=== PATIENT | female | born 1965 | race African-American/Black ===

== ENCOUNTER 2017-02-25 23:34 | Inpatient (IN) | payer MEDICARE, MEDICAID ==
[~2017-02-25] VITALS: Ht 170.2 cm; Wt 111.6 kg
[~2017-02-25 23:34] MED LIST: BUPR100SR PO; LURA80 PO; TOPI25 PO
[2017-02-26] MEDS ORDERED: ZOLPIDEM TARTRATE 10 MG TABLET PO PRN (01:00)
[2017-02-26 01:06] LABS: BASOPHILS % (AUTO) 0.7 % (0.0-2.0); EOSINOPHILS % (AUTO) 3.8 % (1.0-6.0); HEMATOCRIT 37.2 % (36-46); HEMOGLOBIN 12.6 g/dL (12.0-16.0); LYMPHOCYTES # (AUTO) 2.1 K/uL (1.0-4.8); LYMPHOCYTES % (AUTO) 32.9 % (22.0-44.0); MEAN CORPUSCULAR HEMOGLOBIN 28.4 pg (26.0-34.0); MEAN CORPUSCULAR VOLUME 84 fL (80-100); MONOCYTES # (AUTO) 0.3 K/uL (0.1-1.0); MONOCYTES % (AUTO) 5.4 % (2.0-9.0); NEUTROPHILS # (AUTO) 3.6 K/uL (1.8-7.7); NEUTROPHILS % (AUTO) 57.2 % (40.0-70.0); PLATELET COUNT (AUTO) 252 K/uL (150-450); RED BLOOD CELL COUNT(AUTO) 4.45 MIL/uL (4.00-5.20); RED CELL DISTRIBUTION WIDTH 14.6 % (11.5-14.5); WHITE BLOOD COUNT (AUTO) 6.3 K/uL (4.5-11.0)
[2017-02-26 01:15] LABS: ANION GAP 7 mmol/L (8-16); CALCIUM, TOTAL 9.5 mg/dL (8.8-10.5); CARBON DIOXIDE 30 mmol/L (22-29); CHLORIDE 105 mmol/L (98-107); CREATININE 0.87 mg/dL (0.60-1.30); GLOMERULAR FILTR. RATE CALC > 60 mL/min (>60); POTASSIUM 3.9 mmol/L (3.5-5.1); SODIUM SERUM 142 mmol/L (136-145); UREA NITROGEN, BLOOD 16 mg/dL (7-18)
[2017-02-26 01:21] LABS: ALANINE AMINOTRANSFERASE 28 U/L (12-78); ALBUMIN 3.4 g/dL (3.4-5.0); ASPARTATE AMINOTRANSFERASE 16 U/L (15-37); BILIRUBIN,TOTAL 0.2 mg/dL (0.1-1.0); TOTAL PROTEIN, SERUM 7.1 g/dL (6.4-8.2)
[2017-02-26 03:04] LABS: CHOL/HDL RATIO 4.4 (3.9-5.7)
[2017-02-26] MEDS: LORazepam 2 MG TABLET PO PRN ×2 (10:24→15:25)
[2017-02-26] MEDS: HALOPERIDOL 5 MG TABLET PO PRN (10:24)
[2017-02-26 13:17] VITALS: BP 129/65
[2017-02-26 16:09] VITALS: BP 140/60
[2017-02-26] MEDS ORDERED: OLANZapine 5 MG RAPDIS TABLET PO SCH (21:00)
[2017-02-27 00:15] VITALS: BP 138/79
[2017-02-27] MEDS ORDERED: FLUoxetine HCL 20 MG CAPSULE PO SCH (09:00)
[2017-02-27] MEDS: NICOTINE 14 MG/24 HOUR PATCH TD SCH (09:00)
[2017-02-27 09:23] VITALS: BP 122/66
[2017-02-27 16:06] VITALS: BP 139/80
[2017-02-27] MEDS: OLANZapine 10 MG RAPDIS TABLET PO SCH (20:15)
[2017-02-28 03:43] VITALS: BP 123/83
[2017-02-28 08:15] VITALS: BP 119/66
[2017-02-28] MEDS: FLUoxetine HCL 20 MG CAPSULE PO SCH (09:00)
[2017-02-28] MEDS: NICOTINE 14 MG/24 HOUR PATCH TD SCH (09:00)
[2017-02-28 16:06] VITALS: BP 138/79
[2017-02-28] MEDS: OLANZapine 10 MG RAPDIS TABLET PO SCH (20:27)
[2017-02-28] MEDS: HALOPERIDOL 5 MG TABLET PO PRN (21:44)
[2017-03-01 02:18] VITALS: BP 118/79
[2017-03-01 08:21] VITALS: BP 119/59
[2017-03-01] MEDS: FLUoxetine HCL 20 MG CAPSULE PO SCH (08:36)
[2017-03-01] MEDS: NICOTINE 14 MG/24 HOUR PATCH TD SCH (08:36)
[2017-03-01 16:05] VITALS: BP 112/64
[2017-03-01] MEDS ORDERED: FLUO-191 PO (19:02)
[2017-03-01] MEDS ORDERED: OLAN10TA6 PO (19:02)
== END 2017-03-01 19:25 | disposition home or self-care (01) | DRG 885 ==
LOC: EMS 23:36 → B2X 02-26 08:08
PROVIDERS: ADMIT Psychiatry & Neurology Psychiatry; ATTEND Psychiatry & Neurology Psychiatry
DX: F25.0 Schizoaffective disorder, bipolar type (principal); F41.9 Anxiety disorder, unspecified; E78.5 Hyperlipidemia, unspecified; Z59.0 Homelessness; Z90.49 Acquired absence of other specified parts of digestive tract; Z87.891 Personal history of nicotine dependence; Z79.899 Other long term (current) drug therapy; Z88.0 Allergy status to penicillin; Z91.040 Latex allergy status
CPT/HCPCS: 99285; G0480

== ENCOUNTER 2018-05-11 18:20 | Inpatient (IN) | payer MEDICARE, MEDICAID ==
[~2018-05-11] VITALS: Ht 172.7 cm; Wt 122.5 kg
[~2018-05-11 18:20] MED LIST changes: -BUPR100SR PO; -LURA80 PO; +NYST30CR9 TP; +OLAN10TA6 PO; -TOPI25 PO
[2018-05-11 19:50] VITALS: BP 112/73
[2018-05-11] MEDS ORDERED: HALOPERIDOL 5 MG TABLET PO PRN (20:15)
[2018-05-11 20:45] VITALS: BP 118/68
[2018-05-11] MEDS ORDERED: DOCUSATE SODIUM 100 MG CAPSULE PO PRN (21:15)
[2018-05-11] MEDS ORDERED: NICOTINE 14 MG/24 HOUR PATCH TD PRN (21:15)
[2018-05-11] MEDS ORDERED: LOPERAMIDE HCL 2 MG CAPSULE PO PRN (21:15)
[2018-05-11] MEDS ORDERED: ACETAMINOPHEN 325 MG TABLET PO PRN (21:15)
[2018-05-11] MEDS ORDERED: MAGNESIUM HYDROXIDE SUSPENSION 30 ML UDCUP PO PRN (21:15)
[2018-05-11] MEDS ORDERED: CloNIDine HCL 0.1 MG TABLET PO PRN (21:15)
[2018-05-11] MEDS ORDERED: ALBUTEROL SULFATE HFA 90 MCG/PUFF 8 GM INHALER IH PRN (21:15)
[2018-05-11] MEDS ORDERED: GuaiFENesin/D-METHORPHAN [SUGAR-FREE] 200-20MG/10 ML SYRUP UDCUP PO PRN (21:15)
[2018-05-11] MEDS ORDERED: ONDANSETRON HCL 4 MG TABLET PO PRN (21:15)
[2018-05-11] MEDS ORDERED: PETROLATUM,WHITE 71 GM JELLY TP PRN (21:15)
[2018-05-11] MEDS ORDERED: IBUPROFEN 400 MG TABLET PO PRN (21:15)
[2018-05-12 06:30] VITALS: BP 107/64
[2018-05-12 08:02] VITALS: BP 133/97
[2018-05-12 08:39] LABS: BASOPHILS % (AUTO) 0.5 % (0.0-2.0); EOSINOPHILS % (AUTO) 2.1 % (1.0-6.0); HEMOGLOBIN 12.5 g/dL (12.0-16.0); LYMPHOCYTES # (AUTO) 1.8 K/uL (1.0-4.8); MEAN CORPUSCULAR HEMOGLOBIN 27.5 pg (26.0-34.0); MEAN CORPUSCULAR VOLUME 83 fL (80-100); MONOCYTES # (AUTO) 0.4 K/uL (0.1-1.0); MONOCYTES % (AUTO) 8.5 % (2.0-9.0); NEUTROPHILS # (AUTO) 2.4 K/uL (1.8-7.7); NEUTROPHILS % (AUTO) 50.9 % (40.0-70.0); PLATELET COUNT (AUTO) 259 K/uL (150-450); RED BLOOD CELL COUNT(AUTO) 4.57 MIL/uL (4.00-5.20); RED CELL DISTRIBUTION WIDTH 14.2 % (11.5-14.5)
[2018-05-12 09:19] LABS: ALANINE AMINOTRANSFERASE 38 U/L (12-78); ALKALINE PHOSPHATASE 105 U/L (46-116); ANION GAP 7 mmol/L (8-16); ASPARTATE AMINOTRANSFERASE 17 U/L (15-37); BILIRUBIN,TOTAL 0.3 mg/dL (0.1-1.0); CALCIUM, TOTAL 8.7 mg/dL (8.8-10.5); CARBON DIOXIDE 27 mmol/L (22-29); CHLORIDE 107 mmol/L (98-107); CHOL/HDL RATIO 4.4 (3.9-5.7); CHOLESTEROL 193 mg/dL (131-200); CREATININE 1.01 mg/dL (0.60-1.30); FREE T4 (FREE THYROXINE) 0.78 ng/dL (0.76-1.46); GLOMERULAR FILTR. RATE CALC > 60 mL/min (>60); GLUCOSE,RANDOM 82 mg/dL (70-110); HCG,QUANTITATIVE 2 mIU/mL (0-6); HDL CHOLESTEROL 44 mg/dL (40-60); LDL CHOL (CALC.) 136 mg/dL (0-130); POTASSIUM 4.1 mmol/L (3.5-5.1); SODIUM SERUM 141 mmol/L (136-145); THYROID STIMULATING HORMONE 1.28 uIU/mL (0.36-3.74); TOTAL PROTEIN, SERUM 6.9 g/dL (6.4-8.2); TRIGLYCERIDES 66 mg/dL (15-150); UREA NITROGEN, BLOOD 15 mg/dL (7-18)
[2018-05-12 16:00] VITALS: BP 115/71
[2018-05-12] MEDS: LORazepam 2 MG TABLET PO PRN (17:11)
[2018-05-12] MEDS: OLANZapine 10 MG RAPDIS TABLET PO SCH (20:27)
[2018-05-13 06:00] VITALS: BP 116/64
[2018-05-13 06:42] VITALS: BP 116/64
[2018-05-13 08:19] VITALS: BP 135/82
[2018-05-13] MEDS: FLUoxetine HCL 20 MG CAPSULE PO SCH (08:35)
[2018-05-13] MEDS: LORazepam 2 MG TABLET PO PRN (15:59)
[2018-05-13 16:15] VITALS: BP 115/70
[2018-05-13] MEDS: OLANZapine 10 MG RAPDIS TABLET PO SCH (20:01)
[2018-05-14 05:22] VITALS: BP 118/74
[2018-05-14 08:01] VITALS: BP 124/62
[2018-05-14] MEDS: FLUoxetine HCL 20 MG CAPSULE PO SCH (08:24)
[2018-05-14] MEDS: LORazepam 2 MG TABLET PO PRN (18:00)
[2018-05-14 18:02] VITALS: BP 118/68
[2018-05-14] MEDS: OLANZapine 10 MG RAPDIS TABLET PO SCH (20:33)
[2018-05-14] MEDS: ZOLPIDEM TARTRATE 10 MG TABLET PO PRN (21:26)
[2018-05-15 01:32] VITALS: BP 135/74
[2018-05-15 02:32] VITALS: BP 134/88
[2018-05-15] MEDS: LORazepam 2 MG TABLET PO PRN (02:39)
[2018-05-15 08:00] VITALS: BP 136/86
[2018-05-15] MEDS ORDERED: FLUoxetine HCL 20 MG CAPSULE PO SCH (09:00)
[2018-05-15 16:04] VITALS: BP 126/80
[2018-05-15] MEDS: MAG HYDROX/AL HYDROX/SIMETH ES 30 ML SUSPENSION UDCUP PO PRN (20:13)
[2018-05-15] MEDS: OLANZapine 5 MG RAPDIS TABLET PO SCH (20:30)
[2018-05-16 05:13] VITALS: BP 103/62
[2018-05-16 08:18] VITALS: BP 108/63
[2018-05-16] MEDS: FLUoxetine HCL 20 MG CAPSULE PO SCH (08:34)
[2018-05-16 16:10] VITALS: BP 107/66
[2018-05-16] MEDS: LORazepam 2 MG TABLET PO PRN (19:15)
[2018-05-16] MEDS: OLANZapine 5 MG RAPDIS TABLET PO SCH (20:01)
[2018-05-17] VITALS: BP 131/76
[2018-05-17] MEDS: ZOLPIDEM TARTRATE 10 MG TABLET PO PRN (01:33)
[2018-05-17 08:14] VITALS: BP 107/69
[2018-05-17] MEDS: FLUoxetine HCL 20 MG CAPSULE PO SCH (08:42)
[2018-05-17] MEDS: MAG HYDROX/AL HYDROX/SIMETH ES 30 ML SUSPENSION UDCUP PO PRN (09:45)
[2018-05-17 16:08] VITALS: BP 113/65
[2018-05-17] MEDS: OLANZapine 5 MG RAPDIS TABLET PO SCH (20:33)
[2018-05-18 06:16] VITALS: BP 130/82
[2018-05-18 08:54] VITALS: BP 110/68
[2018-05-18] MEDS: FLUoxetine HCL 20 MG CAPSULE PO SCH (09:20)
[2018-05-18] MEDS: MAG HYDROX/AL HYDROX/SIMETH ES 30 ML SUSPENSION UDCUP PO PRN (10:32)
[2018-05-18] MEDS: LORazepam 2 MG TABLET PO PRN (10:32)
[2018-05-18 16:04] VITALS: BP 120/70
[2018-05-18] MEDS: OLANZapine 5 MG RAPDIS TABLET PO SCH (20:32)
[2018-05-18] MEDS: ZOLPIDEM TARTRATE 10 MG TABLET PO PRN (21:35)
[2018-05-19 05:32] VITALS: BP 121/68
[2018-05-19] MEDS: FLUoxetine HCL 20 MG CAPSULE PO SCH (08:11)
[2018-05-19] MEDS: LORazepam 2 MG TABLET PO PRN ×2 (08:11→18:13)
[2018-05-19 08:21] VITALS: BP 131/84
[2018-05-19 16:29] VITALS: BP 120/66
[2018-05-19] MEDS: OLANZapine 5 MG RAPDIS TABLET PO SCH (20:11)
[2018-05-19] MEDS: ZOLPIDEM TARTRATE 10 MG TABLET PO PRN (20:40)
[2018-05-19] MEDS: MAG HYDROX/AL HYDROX/SIMETH ES 30 ML SUSPENSION UDCUP PO PRN (21:49)
[2018-05-20 04:48] VITALS: BP 126/70
[2018-05-20 08:49] VITALS: BP 108/68
[2018-05-20] MEDS: FLUoxetine HCL 20 MG CAPSULE PO SCH (08:55)
[2018-05-20] MEDS: MAG HYDROX/AL HYDROX/SIMETH ES 30 ML SUSPENSION UDCUP PO PRN (15:06)
[2018-05-20 16:04] VITALS: BP 120/80
[2018-05-20] MEDS: OLANZapine 5 MG RAPDIS TABLET PO SCH (20:14)
[2018-05-20] MEDS: ZOLPIDEM TARTRATE 10 MG TABLET PO PRN (21:24)
[2018-05-21 03:05] VITALS: BP 121/68
[2018-05-21 08:04] VITALS: BP 139/71
[2018-05-21] MEDS: FLUoxetine HCL 20 MG CAPSULE PO SCH (08:41)
[2018-05-21 16:11] VITALS: BP 140/87
[2018-05-21] MEDS: LORazepam 2 MG TABLET PO PRN (18:24)
[2018-05-21] MEDS: MAG HYDROX/AL HYDROX/SIMETH ES 30 ML SUSPENSION UDCUP PO PRN (19:25)
[2018-05-21] MEDS: OLANZapine 5 MG RAPDIS TABLET PO SCH (20:29)
[2018-05-21] MEDS ORDERED: OLAN5TAB40 PO (21:35)
[2018-05-21] MEDS ORDERED: FLUO-191 PO (21:35)
[2018-05-22 03:48] VITALS: BP 130/81
== END 2018-05-22 07:15 | disposition home or self-care (01) | DRG 885 ==
LOC: B2S 20:17 → B2X 05-13 20:15
PROVIDERS: ADMIT Psychiatry & Neurology Psychiatry; ATTEND Psychiatry & Neurology Psychiatry
DX: F25.0 Schizoaffective disorder, bipolar type (principal); R45.851 Suicidal ideations; E78.5 Hyperlipidemia, unspecified; F41.9 Anxiety disorder, unspecified; F17.200 Nicotine dependence, unspecified, uncomplicated; F15.90 Other stimulant use, unspecified, uncomplicated; F12.90 Cannabis use, unspecified, uncomplicated; Z59.0 Homelessness; Z88.0 Allergy status to penicillin; Z91.040 Latex allergy status; Z71.51 Drug abuse counseling and surveillance of drug abuser; Z71.41 Alcohol abuse counseling and surveillance of alcoholic; Z72.89 Other problems related to lifestyle; Z23 Encounter for immunization
CPT/HCPCS: 83036; 84439; 84443; 90686

== ENCOUNTER 2019-07-03 22:36 | Inpatient (IN) | payer MEDICARE, MEDICAID ==
[~2019-07-03] VITALS: Ht 172.7 cm; Wt 117.3 kg
[~2019-07-03 22:36] MED LIST changes: +BUPR-93 PO; +LURA40 PO; -NYST30CR9 TP; -OLAN10TA6 PO
[2019-07-03] MEDS ORDERED: ZOLPIDEM TARTRATE 10 MG TABLET PO PRN (23:45)
[2019-07-04 01:49] VITALS: BP 123/88
[2019-07-04] MEDS: HALOPERIDOL 5 MG TABLET PO PRN ×2 (01:59→12:10)
[2019-07-04] MEDS ORDERED: INFLUENZA VIRUS VACCINE QVS 2019-20 (3YR+)/PF 60 MCG/0.5 ML SYRINGE IM ONE (02:00)
[2019-07-04 04:06] LABS: APPEARANCE,URINE CLEAR (CLEAR); GLUCOSE, URINE (UA) NEGATIVE (NEGATIVE); KETONES,URINE NEGATIVE (NEGATIVE); LEUKOCYTE ESTERASE ,URINE NEGATIVE (NEGATIVE); NITRATE,URINE NEGATIVE (NEGATIVE); OCCULT BLOOD,URINE NEGATIVE (NEGATIVE); PROTEIN,URINE NEGATIVE (NEGATIVE)
[2019-07-04 04:12] LABS: BILIRUBIN,URINE PRELIM. POSITIVE (NEGATIVE)
[2019-07-04 04:13] LABS: AMPHET/METH SCREEN,URINE NEGATIVE (NEGATIVE); BACTERIA,URINE Rare /HPF (None Seen); BARBITURATE SCREEN, URINE NEGATIVE (NEGATIVE); BENZODIAZEPINES SCREEN,URINE NEGATIVE (NEGATIVE); CANNABINOID SCREEN,URINE NEGATIVE (NEGATIVE); COCAINE SCREEN,URINE NEGATIVE (NEGATIVE); METHADONE SCREEN, URINE NEGATIVE (NEGATIVE); OPIATE SCREEN,URINE NEGATIVE (NEGATIVE); RBC,URINE 0-2 /HPF (0-2)
[2019-07-04 04:14] LABS: SQUAMOUS EPITHELIAL CELL,UR Moderate /LPF (None Seen)
[2019-07-04 04:15] LABS: PHENCYCLIDINE SCREEN,URINE NEGATIVE (NEGATIVE)
[2019-07-04] MEDS ORDERED: DOCUSATE SODIUM 100 MG CAPSULE PO PRN (10:45)
[2019-07-04] MEDS ORDERED: ACETAMINOPHEN 325 MG TABLET PO PRN (10:45)
[2019-07-04] MEDS ORDERED: GuaiFENesin/D-METHORPHAN [SUGAR-FREE] 200-20MG/10 ML SYRUP UDCUP PO PRN (10:45)
[2019-07-04] MEDS ORDERED: ALBUTEROL SULFATE HFA 90 MCG/PUFF 8 GM INHALER IH PRN (10:45)
[2019-07-04] MEDS ORDERED: NICOTINE 14 MG/24 HOUR PATCH TD PRN (10:45)
[2019-07-04] MEDS ORDERED: ONDANSETRON HCL 4 MG TABLET PO PRN (10:45)
[2019-07-04] MEDS ORDERED: MAG HYDROX/AL HYDROX/SIMETH ES 30 ML SUSPENSION UDCUP PO PRN (10:45)
[2019-07-04] MEDS ORDERED: CloNIDine HCL 0.1 MG TABLET PO PRN (10:45)
[2019-07-04] MEDS ORDERED: LOPERAMIDE HCL 2 MG CAPSULE PO PRN (10:45)
[2019-07-04] MEDS ORDERED: MAGNESIUM HYDROXIDE SUSPENSION 30 ML UDCUP PO PRN (10:45)
[2019-07-04] MEDS ORDERED: PETROLATUM,WHITE 28 GM JELLY TP PRN (10:45)
[2019-07-04] MEDS ORDERED: IBUPROFEN 400 MG TABLET PO PRN (10:45)
[2019-07-04 12:02] VITALS: BP 130/76
[2019-07-04] MEDS: LORazepam 2 MG TABLET PO PRN (12:10)
[2019-07-04 18:05] VITALS: BP 109/70
[2019-07-04] MEDS: LURASIDONE HCL 40 MG TABLET PO SCH (20:31)
[2019-07-05] MEDS: BuPROPion HCL XL 150 MG ER TABLET PO SCH (08:19)
[2019-07-05 09:38] VITALS: BP 114/71
[2019-07-05] MEDS: LORazepam 2 MG TABLET PO PRN (10:59)
[2019-07-05] MEDS: HALOPERIDOL 5 MG TABLET PO PRN (10:59)
[2019-07-05 16:00] VITALS: BP 115/78
[2019-07-05] MEDS: LURASIDONE HCL 40 MG TABLET PO SCH (20:26)
[2019-07-06 03:11] VITALS: BP 139/89
[2019-07-06 08:16] VITALS: BP 136/88
[2019-07-06] MEDS: BuPROPion HCL XL 150 MG ER TABLET PO SCH (08:20)
[2019-07-06] MEDS: LORazepam 2 MG TABLET PO PRN (12:12)
[2019-07-06] MEDS: HALOPERIDOL 5 MG TABLET PO PRN (12:12)
[2019-07-06 19:23] VITALS: BP 101/69
[2019-07-06] MEDS: LURASIDONE HCL 40 MG TABLET PO SCH (20:16)
[2019-07-07] MEDS: BuPROPion HCL XL 150 MG ER TABLET PO SCH (07:55)
[2019-07-07 08:30] VITALS: BP 131/84
[2019-07-07] MEDS: LORazepam 2 MG TABLET PO PRN (14:49)
[2019-07-07 19:00] VITALS: BP 102/65
[2019-07-07] MEDS: LURASIDONE HCL 40 MG TABLET PO SCH (20:30)
[2019-07-08 08:00] VITALS: BP 152/74
[2019-07-08] MEDS: BuPROPion HCL XL 150 MG ER TABLET PO SCH (08:02)
[2019-07-08] MEDS: LORazepam 2 MG TABLET PO PRN (11:10)
[2019-07-08] MEDS ORDERED: LURA60TA PO (11:19)
== END 2019-07-08 14:50 | disposition home or self-care (01) | DRG 885 ==
LOC: 3EX 07-04 00:45
PROVIDERS: ADMIT Psychiatry & Neurology Psychiatry; ATTEND Psychiatry & Neurology Psychiatry
DX: F25.0 Schizoaffective disorder, bipolar type (principal); R45.851 Suicidal ideations; E66.9 Obesity, unspecified; E78.5 Hyperlipidemia, unspecified; F10.10 Alcohol abuse, uncomplicated; F12.90 Cannabis use, unspecified, uncomplicated; F17.200 Nicotine dependence, unspecified, uncomplicated; F41.9 Anxiety disorder, unspecified; Z59.0 Homelessness; Z88.0 Allergy status to penicillin
CPT/HCPCS: 80307; G0378

== ENCOUNTER 2019-07-11 17:04 | Inpatient (IN) | payer MEDICARE, MEDICAID ==
[~2019-07-11] VITALS: Ht 172.7 cm; Wt 118.8 kg
[~2019-07-11 17:04] MED LIST changes: -LURA40 PO; +LURA60TA PO
[2019-07-11] MEDS ORDERED: ZOLPIDEM TARTRATE 10 MG TABLET PO PRN (23:00)
[2019-07-12 00:15] VITALS: BP 120/81
[2019-07-12] MEDS ORDERED: ALBUTEROL SULFATE HFA 90 MCG/PUFF 8 GM INHALER IH PRN (13:45)
[2019-07-12] MEDS ORDERED: NICOTINE 14 MG/24 HOUR PATCH TD PRN (13:45)
[2019-07-12] MEDS ORDERED: GuaiFENesin/D-METHORPHAN [SUGAR-FREE] 200-20MG/10 ML SYRUP UDCUP PO PRN (13:45)
[2019-07-12] MEDS ORDERED: IBUPROFEN 400 MG TABLET PO PRN (13:45)
[2019-07-12] MEDS ORDERED: MAG HYDROX/AL HYDROX/SIMETH ES 30 ML SUSPENSION UDCUP PO PRN (13:45)
[2019-07-12] MEDS ORDERED: DOCUSATE SODIUM 100 MG CAPSULE PO PRN (13:45)
[2019-07-12] MEDS ORDERED: ONDANSETRON HCL 4 MG TABLET PO PRN (13:45)
[2019-07-12] MEDS ORDERED: LOPERAMIDE HCL 2 MG CAPSULE PO PRN (13:45)
[2019-07-12] MEDS ORDERED: ACETAMINOPHEN 325 MG TABLET PO PRN (13:45)
[2019-07-12] MEDS ORDERED: MAGNESIUM HYDROXIDE SUSPENSION 30 ML UDCUP PO PRN (13:45)
[2019-07-12] MEDS ORDERED: CloNIDine HCL 0.1 MG TABLET PO PRN (13:45)
[2019-07-12] MEDS ORDERED: PETROLATUM,WHITE 28 GM JELLY TP PRN (13:45)
[2019-07-12 17:51] VITALS: BP 101/64
[2019-07-12] MEDS: LURASIDONE HCL 40 MG TABLET PO SCH (20:42)
[2019-07-13 06:29] VITALS: BP 112/66
[2019-07-13 08:17] VITALS: BP 113/64
[2019-07-13] MEDS: BuPROPion HCL XL 150 MG ER TABLET PO SCH (09:03)
[2019-07-13 16:11] VITALS: BP 107/63
[2019-07-13] MEDS: LURASIDONE HCL 40 MG TABLET PO SCH (21:58)
[2019-07-14 08:00] VITALS: BP 112/71
[2019-07-14] MEDS: BuPROPion HCL XL 150 MG ER TABLET PO SCH (08:24)
[2019-07-14 11:13] VITALS: BP 109/74
[2019-07-14] MEDS: LORazepam 1 MG TABLET PO PRN (14:38)
[2019-07-14] MEDS: HALOPERIDOL 5 MG TABLET PO PRN (14:38)
[2019-07-14 16:00] VITALS: BP 110/67
[2019-07-14] MEDS: LURASIDONE HCL 40 MG TABLET PO SCH (20:15)
[2019-07-15 06:39] VITALS: BP 102/60
[2019-07-15 08:43] VITALS: BP 123/72
[2019-07-15] MEDS: BuPROPion HCL XL 150 MG ER TABLET PO SCH (09:00)
[2019-07-15] MEDS: LORazepam 1 MG TABLET PO PRN (14:46)
[2019-07-15 16:11] VITALS: BP 98/64
[2019-07-15] MEDS: HALOPERIDOL 5 MG TABLET PO PRN (16:14)
[2019-07-15] MEDS: LURASIDONE HCL 40 MG TABLET PO SCH (20:38)
[2019-07-16 02:35] VITALS: BP 113/65
[2019-07-16] MEDS: LORazepam 1 MG TABLET PO PRN (02:39)
[2019-07-16] MEDS: HALOPERIDOL 5 MG TABLET PO PRN (02:39)
[2019-07-16 07:37] LABS: BASOPHILS % (AUTO) 0.3 % (0.0-2.0); EOSINOPHILS % (AUTO) 1.1 % (1.0-6.0); HEMATOCRIT 40.4 % (36-46); HEMOGLOBIN 13.3 g/dL (12.0-16.0); LYMPHOCYTES # (AUTO) 1.4 K/uL (1.0-4.8); MEAN CORPUSCULAR HEMOGLOBIN 27.7 pg (26.0-34.0); MEAN CORPUSCULAR HGB CONC 32.9 G/dL (31.0-37.0); MEAN CORPUSCULAR VOLUME 84 fL (80-100); MONOCYTES # (AUTO) 0.4 K/uL (0.1-1.0); MONOCYTES % (AUTO) 9.4 % (2.0-9.0); NEUTROPHILS # (AUTO) 2.5 K/uL (1.8-7.7); NEUTROPHILS % (AUTO) 57.2 % (40.0-70.0); PLATELET COUNT (AUTO) 251 K/uL (150-450); RED CELL DISTRIBUTION WIDTH 14.9 % (11.5-14.5)
[2019-07-16 07:53] LABS: HEMOGLOBIN A1C 5.4 % (4.5-6.2)
[2019-07-16 08:02] LABS: ALANINE AMINOTRANSFERASE 25 U/L (12-78); ALBUMIN 3.4 g/dL (3.4-5.0); ALKALINE PHOSPHATASE 112 U/L (46-116); ANION GAP 5 mmol/L (8-16); ASPARTATE AMINOTRANSFERASE 18 U/L (15-37); BILIRUBIN,TOTAL 0.2 mg/dL (0.1-1.0); CALCIUM, TOTAL 8.9 mg/dL (8.8-10.5); CARBON DIOXIDE 30 mmol/L (22-29); CHLORIDE 104 mmol/L (98-107); CHOL/HDL RATIO 4.7 (3.9-5.7); CHOLESTEROL 216 mg/dL (131-200); CREATININE 0.96 mg/dL (0.60-1.30); FREE T4 (FREE THYROXINE) 0.78 ng/dL (0.76-1.46); GLOMERULAR FILTR. RATE CALC > 60 mL/min (>60); GLUCOSE,RANDOM 78 mg/dL (70-110); HCG,QUANTITATIVE 2 mIU/mL (0-6); HDL CHOLESTEROL 46 mg/dL (40-60); LDL CHOL (CALC.) 149 mg/dL (0-130); POTASSIUM 5.2 mmol/L (3.5-5.1); SODIUM SERUM 139 mmol/L (136-145); THYROID STIMULATING HORMONE 3.54 uIU/mL (0.36-3.74); TOTAL PROTEIN, SERUM 7.3 g/dL (6.4-8.2); TRIGLYCERIDES 105 mg/dL (15-150); UREA NITROGEN, BLOOD 16 mg/dL (7-18)
[2019-07-16] MEDS: BuPROPion HCL XL 150 MG ER TABLET PO SCH (08:02)
[2019-07-16 08:24] VITALS: BP 119/69
== END 2019-07-16 09:50 | disposition home or self-care (01) | DRG 885 ==
LOC: B2X 22:20 → UNDOADMIN 22:20 → B2X 07-12 04:31
PROVIDERS: ADMIT Psychiatry & Neurology Psychiatry; ATTEND Psychiatry & Neurology Psychiatry
DX: F25.0 Schizoaffective disorder, bipolar type (principal); R45.851 Suicidal ideations; E78.5 Hyperlipidemia, unspecified; F10.10 Alcohol abuse, uncomplicated; Z71.41 Alcohol abuse counseling and surveillance of alcoholic; F12.90 Cannabis use, unspecified, uncomplicated; F41.9 Anxiety disorder, unspecified; Z59.0 Homelessness; Z86.59 Personal history of other mental and behavioral disorders; Z88.0 Allergy status to penicillin; Z79.899 Other long term (current) drug therapy
CPT/HCPCS: 83036; 84436; 84439; 84443; 87081

== ENCOUNTER 2019-09-24 20:47 | Inpatient (IN) | payer MEDICARE, MEDICAID ==
[2019-09-24] MEDS ORDERED: ZOLPIDEM TARTRATE 10 MG TABLET PO PRN (21:45)
[2019-09-24 21:53] VITALS: BP 113/65
[2019-09-24 22:07] VITALS: BP 124/79
[2019-09-25 06:27] VITALS: BP 123/70
[2019-09-25] MEDS ORDERED: PETROLATUM,WHITE 28 GM JELLY TP PRN (09:30)
[2019-09-25] MEDS ORDERED: LOPERAMIDE HCL 2 MG CAPSULE PO PRN (09:30)
[2019-09-25] MEDS ORDERED: ALBUTEROL SULFATE HFA 90 MCG/PUFF 8 GM INHALER IH PRN (09:30)
[2019-09-25] MEDS ORDERED: GuaiFENesin/D-METHORPHAN [SUGAR-FREE] 200-20MG/10 ML SYRUP UDCUP PO PRN (09:30)
[2019-09-25] MEDS ORDERED: IBUPROFEN 400 MG TABLET PO PRN (09:30)
[2019-09-25] MEDS ORDERED: MAG HYDROX/AL HYDROX/SIMETH ES 30 ML SUSPENSION UDCUP PO PRN (09:30)
[2019-09-25] MEDS ORDERED: CloNIDine HCL 0.1 MG TABLET PO PRN (09:30)
[2019-09-25] MEDS ORDERED: DOCUSATE SODIUM 100 MG CAPSULE PO PRN (09:30)
[2019-09-25] MEDS ORDERED: ACETAMINOPHEN 325 MG TABLET PO PRN (09:30)
[2019-09-25] MEDS ORDERED: ONDANSETRON HCL 4 MG TABLET PO PRN (09:30)
[2019-09-25] MEDS ORDERED: NICOTINE 14 MG/24 HOUR PATCH TD PRN (09:30)
[2019-09-25] MEDS ORDERED: MAGNESIUM HYDROXIDE SUSPENSION 30 ML UDCUP PO PRN (09:30)
[2019-09-25 16:00] VITALS: BP 117/60
[2019-09-25] MEDS: LURASIDONE HCL 40 MG TABLET PO SCH (21:27)
[2019-09-26 07:10] VITALS: BP 116/64
[2019-09-26] MEDS: BuPROPion HCL XL 150 MG ER TABLET PO SCH (08:41)
[2019-09-26] MEDS: NYSTATIN 15 GM POWDER BOTTLE TP SCH ×3 (09:00→17:22)
[2019-09-26 16:00] VITALS: BP 101/69
[2019-09-26] MEDS: LURASIDONE HCL 40 MG TABLET PO SCH (17:21)
[2019-09-27] MEDS: BuPROPion HCL XL 150 MG ER TABLET PO SCH (08:20)
[2019-09-27] MEDS: NYSTATIN 15 GM POWDER BOTTLE TP SCH ×3 (08:27→17:15)
[2019-09-27 08:30] VITALS: BP 114/72
[2019-09-27 16:20] VITALS: BP 105/63
[2019-09-27] MEDS: LURASIDONE HCL 40 MG TABLET PO SCH (17:15)
[2019-09-28 06:24] VITALS: BP 100/60
[2019-09-28 08:34] VITALS: BP 106/61
[2019-09-28] MEDS: BuPROPion HCL XL 150 MG ER TABLET PO SCH (08:49)
[2019-09-28] MEDS: NYSTATIN 15 GM POWDER BOTTLE TP SCH ×3 (08:49→17:29)
[2019-09-28] MEDS: LORazepam 2 MG TABLET PO PRN (15:38)
[2019-09-28] MEDS: HALOPERIDOL 5 MG TABLET PO PRN (15:38)
[2019-09-28 16:31] VITALS: BP 130/59
[2019-09-28] MEDS: LURASIDONE HCL 40 MG TABLET PO SCH (17:28)
[2019-09-29 05:21] VITALS: BP 128/70
[2019-09-29 08:02] LABS: BASOPHILS % (AUTO) 1.4 % (0.0-2.0); EOSINOPHILS % (AUTO) 2.1 % (1.0-6.0); HEMATOCRIT 38.3 % (36-46); HEMOGLOBIN 12.6 g/dL (12.0-16.0); LYMPHOCYTES # (AUTO) 1.5 K/uL (1.0-4.8); LYMPHOCYTES % (AUTO) 34.4 % (22.0-44.0); MEAN CORPUSCULAR HEMOGLOBIN 27.8 pg (26.0-34.0); MEAN CORPUSCULAR HGB CONC 32.9 G/dL (31.0-37.0); MEAN CORPUSCULAR VOLUME 84 fL (80-100); MONOCYTES # (AUTO) 0.4 K/uL (0.1-1.0); MONOCYTES % (AUTO) 8.8 % (2.0-9.0); NEUTROPHILS # (AUTO) 2.3 K/uL (1.8-7.7); NEUTROPHILS % (AUTO) 53.3 % (40.0-70.0); PLATELET COUNT (AUTO) 255 K/uL (150-450); RED BLOOD CELL COUNT(AUTO) 4.54 MIL/uL (4.00-5.20); RED CELL DISTRIBUTION WIDTH 13.9 % (11.5-14.5)
[2019-09-29 08:26] LABS: HEMOGLOBIN A1C 5.6 % (4.5-6.2)
[2019-09-29 08:33] LABS: ALANINE AMINOTRANSFERASE 37 U/L (12-78); ALBUMIN 3.1 g/dL (3.4-5.0); ALKALINE PHOSPHATASE 116 U/L (46-116); ANION GAP 6 mmol/L (8-16); ASPARTATE AMINOTRANSFERASE 22 U/L (15-37); BILIRUBIN,TOTAL 0.3 mg/dL (0.1-1.0); CALCIUM, TOTAL 9.2 mg/dL (8.8-10.5); CARBON DIOXIDE 28 mmol/L (22-29); CHLORIDE 107 mmol/L (98-107); CHOL/HDL RATIO 5.1 (3.9-5.7); CHOLESTEROL 192 mg/dL (131-200); CREATININE 1.02 mg/dL (0.60-1.30); GLOMERULAR FILTR. RATE CALC > 60 mL/min (>60); GLUCOSE,RANDOM 80 mg/dL (70-110); HDL CHOLESTEROL 38 mg/dL (40-60); LDL CHOL (CALC.) 136 mg/dL (0-130); POTASSIUM 3.9 mmol/L (3.5-5.1); SODIUM SERUM 141 mmol/L (136-145); THYROID STIMULATING HORMONE 3.79 uIU/mL (0.36-3.74); TOTAL PROTEIN, SERUM 7.2 g/dL (6.4-8.2); TRIGLYCERIDES 88 mg/dL (15-150); UREA NITROGEN, BLOOD 12 mg/dL (7-18)
[2019-09-29 08:57] VITALS: BP 120/68
[2019-09-29] MEDS: BuPROPion HCL XL 150 MG ER TABLET PO SCH (09:38)
[2019-09-29] MEDS: NYSTATIN 15 GM POWDER BOTTLE TP SCH ×3 (09:39→17:12)
[2019-09-29] MEDS: LORazepam 2 MG TABLET PO PRN (13:01)
[2019-09-29] MEDS: HALOPERIDOL 5 MG TABLET PO PRN (13:01)
[2019-09-29 16:15] VITALS: BP 103/60
[2019-09-29] MEDS: LURASIDONE HCL 80 MG TABLET PO SCH (17:11)
[2019-09-30 07:10] VITALS: BP 117/64
[2019-09-30 08:00] VITALS: BP 140/82
[2019-09-30] MEDS: BuPROPion HCL XL 150 MG ER TABLET PO SCH (08:50)
[2019-09-30] MEDS: NYSTATIN 15 GM POWDER BOTTLE TP SCH ×3 (08:53→16:45)
[2019-09-30] MEDS: HALOPERIDOL 5 MG TABLET PO PRN (10:46)
[2019-09-30] MEDS: LORazepam 2 MG TABLET PO PRN (10:46)
[2019-09-30 16:11] VITALS: BP 110/69
[2019-09-30] MEDS: LURASIDONE HCL 80 MG TABLET PO SCH (16:44)
[2019-10-01 00:46] VITALS: BP 134/81
[2019-10-01 08:27] VITALS: BP 107/68
[2019-10-01] MEDS: BuPROPion HCL XL 150 MG ER TABLET PO SCH (08:45)
[2019-10-01] MEDS: NYSTATIN 15 GM POWDER BOTTLE TP SCH ×3 (08:47→17:47)
[2019-10-01] MEDS: LORazepam 2 MG TABLET PO PRN (11:44)
[2019-10-01] MEDS: HALOPERIDOL 5 MG TABLET PO PRN (11:44)
[2019-10-01 16:33] VITALS: BP 114/78
[2019-10-01] MEDS: LURASIDONE HCL 80 MG TABLET PO SCH (17:47)
[2019-10-02 00:36] VITALS: BP 137/89
[2019-10-02] MEDS: BuPROPion HCL XL 150 MG ER TABLET PO SCH (09:00)
[2019-10-02] MEDS: HALOPERIDOL 5 MG TABLET PO PRN ×2 (09:00→17:18)
[2019-10-02] MEDS: LORazepam 2 MG TABLET PO PRN ×2 (09:00→17:18)
[2019-10-02] MEDS: NYSTATIN 15 GM POWDER BOTTLE TP SCH ×3 (09:02→16:22)
[2019-10-02 09:12] VITALS: BP 155/74
[2019-10-02] MEDS: LURASIDONE HCL 80 MG TABLET PO SCH (16:22)
[2019-10-02 16:23] VITALS: BP 119/71
[2019-10-03 08:35] VITALS: BP 123/74
[2019-10-03] MEDS: NYSTATIN 15 GM POWDER BOTTLE TP SCH (08:38)
[2019-10-03] MEDS: BuPROPion HCL XL 150 MG ER TABLET PO SCH (08:38)
[2019-10-03] MEDS ORDERED: NYST15PO3 TP (08:47)
[2019-10-03] MEDS ORDERED: LURA80 PO (08:47)
== END 2019-10-03 09:50 | disposition home or self-care (01) | DRG 885 ==
LOC: B2S 22:29
DX: F25.1 Schizoaffective disorder, depressive type (principal); R45.851 Suicidal ideations; E78.5 Hyperlipidemia, unspecified; F12.90 Cannabis use, unspecified, uncomplicated; F41.9 Anxiety disorder, unspecified; F17.200 Nicotine dependence, unspecified, uncomplicated; B36.9 Superficial mycosis, unspecified; F10.10 Alcohol abuse, uncomplicated; K59.00 Constipation, unspecified; Z79.899 Other long term (current) drug therapy; Z81.8 Family history of other mental and behavioral disorders; Z86.59 Personal history of other mental and behavioral disorders
CPT/HCPCS: 83036; 84439; 84443

== ENCOUNTER 2019-12-08 19:19 | Inpatient (IN) | payer MEDICARE, MEDICAID ==
[~2019-12-08 19:19] MED LIST changes: -LURA60TA PO; +LURA80TA2 PO; +NYST15PO3 TP
[2019-12-08 20:11] VITALS: BP 105/71
[2019-12-08 20:49] VITALS: BP 114/64
[2019-12-08] MEDS: ZOLPIDEM TARTRATE 10 MG TABLET PO PRN (20:57)
[2019-12-09 08:28] VITALS: BP 127/71
[2019-12-09] MEDS: PARoxetine HCL 20 MG TABLET PO SCH (10:21)
[2019-12-09] MEDS: OLANZapine 5 MG TABLET PO SCH ×2 (10:21→16:24)
[2019-12-09] MEDS: LORazepam 2 MG TABLET PO PRN (10:22)
[2019-12-09 17:19] VITALS: BP 110/64
[2019-12-10] MEDS: OLANZapine 5 MG TABLET PO SCH (08:38)
[2019-12-10] MEDS: PARoxetine HCL 20 MG TABLET PO SCH (08:38)
[2019-12-10 08:55] VITALS: BP 121/73
[2019-12-10] MEDS: LORazepam 2 MG TABLET PO PRN ×2 (09:32→16:05)
[2019-12-10] MEDS ORDERED: MAG HYDROX/AL HYDROX/SIMETH 30 ML SUSP UDCUP PO PRN (09:45)
[2019-12-10] MEDS: RisperiDONE 2 MG TABLET PO SCH ×2 (10:39→17:09)
[2019-12-10 16:26] VITALS: BP 110/65
[2019-12-10] MEDS ORDERED: ACETAMINOPHEN 325 MG TABLET PO PRN (20:45)
[2019-12-10] MEDS ORDERED: BENZOCAINE 10% 7 GM GEL TP PRN (20:45)
[2019-12-10] MEDS: HALOPERIDOL 5 MG TABLET PO PRN (21:18)
[2019-12-10] MEDS: ZOLPIDEM TARTRATE 10 MG TABLET PO PRN (23:47)
[2019-12-11 01:36] VITALS: BP 116/89
[2019-12-11 08:11] VITALS: BP 128/92
[2019-12-11] MEDS: PARoxetine HCL 20 MG TABLET PO SCH (08:43)
[2019-12-11] MEDS: RisperiDONE 2 MG TABLET PO SCH ×2 (08:43→16:38)
[2019-12-11 16:10] VITALS: BP 131/88
[2019-12-11] MEDS: HALOPERIDOL 5 MG TABLET PO PRN (16:38)
[2019-12-11] MEDS: ZOLPIDEM TARTRATE 10 MG TABLET PO PRN (20:29)
[2019-12-12 08:23] LABS: BASOPHILS % (AUTO) 0.6 % (0.0-2.0); EOSINOPHILS % (AUTO) 2.6 % (1.0-6.0); HEMATOCRIT 37.6 % (36-46); HEMOGLOBIN 12.3 g/dL (12.0-16.0); LYMPHOCYTES % (AUTO) 43.1 % (22.0-44.0); MEAN CORPUSCULAR HEMOGLOBIN 27.1 pg (26.0-34.0); MEAN CORPUSCULAR HGB CONC 32.6 G/dL (31.0-37.0); MEAN CORPUSCULAR VOLUME 83 fL (80-100); MONOCYTES # (AUTO) 0.4 K/uL (0.1-1.0); MONOCYTES % (AUTO) 8.8 % (2.0-9.0); NEUTROPHILS # (AUTO) 2.1 K/uL (1.8-7.7); NEUTROPHILS % (AUTO) 44.9 % (40.0-70.0); PLATELET COUNT (AUTO) 226 K/uL (150-450); RED BLOOD CELL COUNT(AUTO) 4.52 MIL/uL (4.00-5.20)
[2019-12-12] MEDS: RisperiDONE 2 MG TABLET PO SCH ×2 (09:05→16:39)
[2019-12-12] MEDS: PARoxetine HCL 20 MG TABLET PO SCH (09:05)
[2019-12-12 09:27] LABS: HEMOGLOBIN A1C 5.4 % (3.8-5.6)
[2019-12-12 09:38] LABS: ALANINE AMINOTRANSFERASE 21 U/L (12-78); ALBUMIN 3.3 g/dL (3.4-5.0); ALKALINE PHOSPHATASE 106 U/L (46-116); ANION GAP 7 mmol/L (8-16); ASPARTATE AMINOTRANSFERASE 13 U/L (15-37); BILIRUBIN,TOTAL 0.2 mg/dL (0.1-1.0); CALCIUM, TOTAL 8.9 mg/dL (8.8-10.5); CARBON DIOXIDE 27 mmol/L (22-29); CHLORIDE 108 mmol/L (98-107); CHOL/HDL RATIO 4.7 (3.9-5.7); CHOLESTEROL 205 mg/dL (131-200); CREATININE 0.76 mg/dL (0.60-1.30); FREE T4 (FREE THYROXINE) 0.88 ng/dL (0.76-1.46); GLOMERULAR FILTR. RATE CALC > 60 mL/min (>60); GLUCOSE,RANDOM 76 mg/dL (70-110); HDL CHOLESTEROL 44 mg/dL (40-60); LDL CHOL (CALC.) 147 mg/dL (0-130); POTASSIUM 4.8 mmol/L (3.5-5.1); SODIUM SERUM 142 mmol/L (136-145); THYROID STIMULATING HORMONE 2.48 uIU/mL (0.36-3.74); TOTAL PROTEIN, SERUM 6.5 g/dL (6.4-8.2); TRIGLYCERIDES 70 mg/dL (15-150); UREA NITROGEN, BLOOD 13 mg/dL (7-18)
[2019-12-12 16:11] VITALS: BP 111/66
[2019-12-12] MEDS: LORazepam 2 MG TABLET PO PRN (16:43)
[2019-12-13 03:10] VITALS: BP 118/78
[2019-12-13 08:17] VITALS: BP 130/69
[2019-12-13] MEDS: RisperiDONE 2 MG TABLET PO SCH ×2 (08:25→16:31)
[2019-12-13] MEDS: LORazepam 2 MG TABLET PO PRN ×2 (08:28→16:32)
[2019-12-13] MEDS: PARoxetine HCL 20 MG TABLET PO SCH (08:28)
[2019-12-13 16:19] VITALS: BP 123/84
[2019-12-13] MEDS: ZOLPIDEM TARTRATE 10 MG TABLET PO PRN (22:42)
[2019-12-14 00:53] VITALS: BP 141/88
[2019-12-14 07:58] LABS: BASOPHILS % (AUTO) 0.6 % (0.0-2.0); EOSINOPHILS % (AUTO) 2.1 % (1.0-6.0); HEMATOCRIT 38.5 % (36-46); HEMOGLOBIN 12.5 g/dL (12.0-16.0); LYMPHOCYTES # (AUTO) 1.9 K/uL (1.0-4.8); LYMPHOCYTES % (AUTO) 37.3 % (22.0-44.0); MEAN CORPUSCULAR HEMOGLOBIN 27.1 pg (26.0-34.0); MEAN CORPUSCULAR HGB CONC 32.4 G/dL (31.0-37.0); MEAN CORPUSCULAR VOLUME 84 fL (80-100); MONOCYTES # (AUTO) 0.5 K/uL (0.1-1.0); MONOCYTES % (AUTO) 9.9 % (2.0-9.0); NEUTROPHILS # (AUTO) 2.5 K/uL (1.8-7.7); NEUTROPHILS % (AUTO) 50.1 % (40.0-70.0); PLATELET COUNT (AUTO) 227 K/uL (150-450); RED BLOOD CELL COUNT(AUTO) 4.59 MIL/uL (4.00-5.20)
[2019-12-14 08:03] LABS: HEMOGLOBIN A1C 5.5 % (3.8-5.6)
[2019-12-14] MEDS: RisperiDONE 2 MG TABLET PO SCH ×2 (08:09→16:41)
[2019-12-14 08:12] LABS: ALANINE AMINOTRANSFERASE 24 U/L (12-78); ALBUMIN 3.3 g/dL (3.4-5.0); ALKALINE PHOSPHATASE 105 U/L (46-116); ANION GAP 8 mmol/L (8-16); ASPARTATE AMINOTRANSFERASE 17 U/L (15-37); BILIRUBIN,TOTAL 0.3 mg/dL (0.1-1.0); CALCIUM, TOTAL 9.3 mg/dL (8.8-10.5); CARBON DIOXIDE 28 mmol/L (22-29); CHLORIDE 104 mmol/L (98-107); CREATININE 0.79 mg/dL (0.60-1.30); FREE T4 (FREE THYROXINE) 0.89 ng/dL (0.76-1.46); GLOMERULAR FILTR. RATE CALC > 60 mL/min (>60); GLUCOSE,RANDOM 71 mg/dL (70-110); POTASSIUM 4.2 mmol/L (3.5-5.1); SODIUM SERUM 140 mmol/L (136-145); THYROID STIMULATING HORMONE 1.99 uIU/mL (0.36-3.74); TOTAL PROTEIN, SERUM 7.1 g/dL (6.4-8.2); UREA NITROGEN, BLOOD 11 mg/dL (7-18)
[2019-12-14 08:13] VITALS: BP 109/66
[2019-12-14] MEDS: HALOPERIDOL 5 MG TABLET PO PRN (10:00)
[2019-12-14 16:11] VITALS: BP 112/69
[2019-12-14] MEDS ORDERED: ACETAMINOPHEN 325 MG TABLET PO PRN (16:30)
[2019-12-14] MEDS ORDERED: IBUPROFEN 400 MG TABLET PO PRN (16:30)
[2019-12-14] MEDS ORDERED: NICOTINE 14 MG/24 HOUR PATCH TD PRN (16:30)
[2019-12-14] MEDS ORDERED: PETROLATUM,WHITE 28 GM JELLY TP PRN (16:30)
[2019-12-14] MEDS ORDERED: DOCUSATE SODIUM 100 MG CAPSULE PO PRN (16:30)
[2019-12-14] MEDS ORDERED: ALBUTEROL SULFATE HFA 90 MCG/PUFF 8 GM INHALER IH PRN (16:30)
[2019-12-14] MEDS ORDERED: MAGNESIUM HYDROXIDE SUSPENSION 30 ML UDCUP PO PRN (16:30)
[2019-12-14] MEDS ORDERED: CloNIDine HCL 0.1 MG TABLET PO PRN (16:30)
[2019-12-14] MEDS ORDERED: ONDANSETRON HCL 4 MG TABLET PO PRN (16:30)
[2019-12-14] MEDS ORDERED: LOPERAMIDE HCL 2 MG CAPSULE PO PRN (16:30)
[2019-12-14] MEDS: GuaiFENesin/D-METHORPHAN [SUGAR-FREE] 200-20MG/10 ML SYRUP UDCUP PO PRN (16:41)
[2019-12-14] MEDS: MAG HYDROX/AL HYDROX/SIMETH ES 30 ML SUSPENSION UDCUP PO PRN (16:42)
[2019-12-14] MEDS: LORazepam 2 MG TABLET PO PRN (17:30)
[2019-12-15] MEDS: RisperiDONE 2 MG TABLET PO SCH ×2 (08:32→16:34)
[2019-12-15 08:50] VITALS: BP 113/79
[2019-12-15] MEDS: HALOPERIDOL 5 MG TABLET PO PRN (13:10)
[2019-12-15] MEDS: GuaiFENesin/D-METHORPHAN [SUGAR-FREE] 200-20MG/10 ML SYRUP UDCUP PO PRN (13:43)
[2019-12-15 16:50] VITALS: BP 111/60
[2019-12-15] MEDS: MAG HYDROX/AL HYDROX/SIMETH ES 30 ML SUSPENSION UDCUP PO PRN (19:05)
[2019-12-16] MEDS: ZOLPIDEM TARTRATE 10 MG TABLET PO PRN (00:59)
[2019-12-16] MEDS: GuaiFENesin/D-METHORPHAN [SUGAR-FREE] 200-20MG/10 ML SYRUP UDCUP PO PRN ×2 (01:28→16:29)
[2019-12-16 02:27] VITALS: BP 119/78
[2019-12-16] MEDS: RisperiDONE 2 MG TABLET PO SCH ×2 (08:10→16:29)
[2019-12-16 08:31] VITALS: BP 121/83
[2019-12-16] MEDS: LORazepam 2 MG TABLET PO PRN (11:15)
[2019-12-16 16:12] VITALS: BP 127/72
[2019-12-17 05:27] VITALS: BP 138/96
[2019-12-17] MEDS: GuaiFENesin/D-METHORPHAN [SUGAR-FREE] 200-20MG/10 ML SYRUP UDCUP PO PRN ×2 (06:25→16:05)
[2019-12-17] MEDS: LORazepam 2 MG TABLET PO PRN (06:33)
[2019-12-17 08:17] VITALS: BP 134/62
[2019-12-17] MEDS: RisperiDONE 2 MG TABLET PO SCH ×2 (08:38→16:04)
[2019-12-17] MEDS ORDERED: RISP2 PO (15:53)
[2019-12-17 16:11] VITALS: BP 138/81
== END 2019-12-17 16:45 | disposition home or self-care (01) | DRG 885 ==
LOC: B2S 19:42
PROVIDERS: ADMIT Psychiatry & Neurology Psychiatry; ATTEND Psychiatry & Neurology Psychiatry
DX: F25.1 Schizoaffective disorder, depressive type (principal); R45.851 Suicidal ideations; F10.10 Alcohol abuse, uncomplicated; E78.5 Hyperlipidemia, unspecified; Z59.0 Homelessness; Z86.59 Personal history of other mental and behavioral disorders; Z87.891 Personal history of nicotine dependence
CPT/HCPCS: 83036; 84439; 84443

== ENCOUNTER 2020-01-07 09:21 | Emergency (ER) | payer MEDICARE, MEDICAID ==
[~2020-01-07] VITALS: Ht 175.3 cm; Wt 113.6 kg
[~2020-01-07 09:21] MED LIST changes: -BUPR-93 PO; -LURA80TA2 PO; -NYST15PO3 TP; +RISP2TAB23 PO
[2020-01-07 13:39] LABS: AMPHET/METH SCREEN,URINE NEGATIVE (NEGATIVE); BARBITURATE SCREEN, URINE NEGATIVE (NEGATIVE); BENZODIAZEPINES SCREEN,URINE NEGATIVE (NEGATIVE); CANNABINOID SCREEN,URINE POSITIVE (NEGATIVE); COCAINE SCREEN,URINE NEGATIVE (NEGATIVE); METHADONE SCREEN, URINE NEGATIVE (NEGATIVE); OPIATE SCREEN,URINE NEGATIVE (NEGATIVE)
[2020-01-07 13:54] LABS: PHENCYCLIDINE SCREEN,URINE NEGATIVE (NEGATIVE)
[2020-01-07 15:10] VITALS: BP 122/76
== END 2020-01-07 16:02 | disposition other institution (70) ==
LOC: EMS 09:22
DX: F52.9 Unspecified sexual dysfunction not due to a substance or known physiological condition (principal); R45.851 Suicidal ideations; F12.90 Cannabis use, unspecified, uncomplicated; F31.9 Bipolar disorder, unspecified

== ENCOUNTER 2020-02-12 16:25 | Inpatient (IN) | payer MEDICARE, MEDICAID ==
[~2020-02-12] VITALS: Ht 172.7 cm; Wt 117.6 kg
[2020-02-12] MEDS ORDERED: HALOPERIDOL 5 MG TABLET PO PRN (17:00)
[2020-02-12] MEDS ORDERED: PNEUMOCOCCAL VACCINE POLYVALENT 0.5 ML VIAL [PPSV23] IM ONE (17:00)
[2020-02-12 17:21] VITALS: BP 121/68
[2020-02-12] MEDS ORDERED: MAGNESIUM HYDROXIDE SUSPENSION 30 ML UDCUP PO PRN (20:30)
[2020-02-12] MEDS ORDERED: PETROLATUM,WHITE 28 GM JELLY TP PRN (20:30)
[2020-02-12] MEDS ORDERED: ONDANSETRON HCL 4 MG TABLET PO PRN (20:30)
[2020-02-12] MEDS ORDERED: ALBUTEROL SULFATE HFA 90 MCG/PUFF 8 GM INHALER IH PRN (20:30)
[2020-02-12] MEDS ORDERED: GuaiFENesin/D-METHORPHAN [SUGAR-FREE] 200-20MG/10 ML SYRUP UDCUP PO PRN (20:30)
[2020-02-12] MEDS ORDERED: MAG HYDROX/AL HYDROX/SIMETH ES 30 ML SUSPENSION UDCUP PO PRN (20:30)
[2020-02-12] MEDS ORDERED: CloNIDine HCL 0.1 MG TABLET PO PRN (20:30)
[2020-02-12] MEDS ORDERED: LOPERAMIDE HCL 2 MG CAPSULE PO PRN (20:30)
[2020-02-12] MEDS ORDERED: IBUPROFEN 400 MG TABLET PO PRN (20:30)
[2020-02-12] MEDS ORDERED: NICOTINE 14 MG/24 HOUR PATCH TD PRN (20:30)
[2020-02-12] MEDS ORDERED: DOCUSATE SODIUM 100 MG CAPSULE PO PRN (20:30)
[2020-02-12 21:06] LABS: GLUCOMETER DEV NAME(LOC) BV2S.; GLUCOSE,POINT OF CARE 93 MG/DL (70-110)
[2020-02-13 00:19] VITALS: BP 118/70
[2020-02-13 08:45] LABS: BASOPHILS % (AUTO) 0.4 % (0.0-2.0); HEMATOCRIT 40.2 % (36-46); HEMOGLOBIN 12.8 g/dL (12.0-16.0); LYMPHOCYTES # (AUTO) 2.2 K/uL (1.0-4.8); LYMPHOCYTES % (AUTO) 35.8 % (22.0-44.0); MEAN CORPUSCULAR HEMOGLOBIN 26.7 pg (26.0-34.0); MEAN CORPUSCULAR HGB CONC 31.8 G/dL (31.0-37.0); MEAN CORPUSCULAR VOLUME 84 fL (80-100); MONOCYTES # (AUTO) 0.5 K/uL (0.1-1.0); MONOCYTES % (AUTO) 8.3 % (2.0-9.0); NEUTROPHILS # (AUTO) 3.2 K/uL (1.8-7.7); NEUTROPHILS % (AUTO) 53.5 % (40.0-70.0); PLATELET COUNT (AUTO) 253 K/uL (150-450); RED BLOOD CELL COUNT(AUTO) 4.79 MIL/uL (4.00-5.20); RED CELL DISTRIBUTION WIDTH 15.4 % (11.5-14.5)
[2020-02-13 09:14] LABS: ALANINE AMINOTRANSFERASE 32 U/L (12-78); ALBUMIN 3.2 g/dL (3.4-5.0); ALKALINE PHOSPHATASE 113 U/L (46-116); ANION GAP 6 mmol/L (8-16); ASPARTATE AMINOTRANSFERASE 22 U/L (15-37); BILIRUBIN,TOTAL 0.3 mg/dL (0.1-1.0); CARBON DIOXIDE 28 mmol/L (22-29); CHLORIDE 104 mmol/L (98-107); CHOLESTEROL 239 mg/dL (131-200); CREATININE 0.87 mg/dL (0.60-1.30); FREE T4 (FREE THYROXINE) 0.76 ng/dL (0.76-1.46); GLOMERULAR FILTR. RATE CALC > 60 mL/min (>60); GLUCOSE,RANDOM 78 mg/dL (70-110); HDL CHOLESTEROL 48 mg/dL (40-60); LDL CHOL (CALC.) 172 mg/dL (0-130); POTASSIUM 4.1 mmol/L (3.5-5.1); SODIUM SERUM 138 mmol/L (136-145); THYROID STIMULATING HORMONE 1.26 uIU/mL (0.36-3.74); TOTAL PROTEIN, SERUM 7.4 g/dL (6.4-8.2); TRIGLYCERIDES 95 mg/dL (15-150); UREA NITROGEN, BLOOD 20 mg/dL (7-18)
[2020-02-13 09:21] LABS: HEMOGLOBIN A1C 5.4 % (3.8-5.6)
[2020-02-13] MEDS: FLUoxetine HCL 20 MG CAPSULE PO SCH (13:15)
[2020-02-13] MEDS: RisperiDONE 2 MG TABLET PO SCH (18:24)
[2020-02-14] MEDS: RisperiDONE 2 MG TABLET PO SCH ×2 (08:49→16:07)
[2020-02-14] MEDS: FLUoxetine HCL 20 MG CAPSULE PO SCH (08:49)
[2020-02-14] MEDS: LORazepam 2 MG TABLET PO PRN ×2 (14:22→20:05)
[2020-02-14] MEDS: ZOLPIDEM TARTRATE 10 MG TABLET PO PRN (22:40)
[2020-02-15 00:21] VITALS: BP 118/73
[2020-02-15] MEDS: FLUoxetine HCL 20 MG CAPSULE PO SCH (08:32)
[2020-02-15] MEDS: RisperiDONE 2 MG TABLET PO SCH ×2 (08:32→17:02)
[2020-02-15 09:27] VITALS: BP 126/80
[2020-02-15] MEDS: ACETAMINOPHEN 325 MG TABLET PO PRN ×2 (11:51→17:02)
[2020-02-15] MEDS: LORazepam 2 MG TABLET PO PRN (17:15)
[2020-02-15] MEDS: ZOLPIDEM TARTRATE 10 MG TABLET PO PRN (21:21)
[2020-02-16 06:54] VITALS: BP 122/78
[2020-02-16] MEDS: ACETAMINOPHEN 325 MG TABLET PO PRN ×2 (06:59→18:23)
[2020-02-16] MEDS: LORazepam 2 MG TABLET PO PRN ×2 (06:59→18:23)
[2020-02-16] MEDS: FLUoxetine HCL 20 MG CAPSULE PO SCH (08:15)
[2020-02-16] MEDS: RisperiDONE 2 MG TABLET PO SCH ×2 (08:15→16:43)
[2020-02-16 10:10] VITALS: BP 118/72
[2020-02-16 16:24] VITALS: BP 103/64
[2020-02-16 18:23] VITALS: BP 110/72
[2020-02-17 00:29] VITALS: BP 106/78
[2020-02-17] MEDS: ZOLPIDEM TARTRATE 10 MG TABLET PO PRN (01:58)
[2020-02-17 08:16] VITALS: BP 140/89
[2020-02-17] MEDS: FLUoxetine HCL 20 MG CAPSULE PO SCH (08:35)
[2020-02-17] MEDS: RisperiDONE 2 MG TABLET PO SCH (08:35)
[2020-02-17] MEDS ORDERED: FLUO-191 PO (12:15)
== END 2020-02-17 12:40 | disposition home or self-care (01) | DRG 885 ==
LOC: B2S 17:16
PROVIDERS: ADMIT Psychiatry & Neurology Child & Adolescent Psychiatry; ATTEND Psychiatry & Neurology Child & Adolescent Psychiatry
DX: F25.1 Schizoaffective disorder, depressive type (principal); R45.851 Suicidal ideations; F41.9 Anxiety disorder, unspecified; E11.9 Type 2 diabetes mellitus without complications; E78.5 Hyperlipidemia, unspecified; F10.10 Alcohol abuse, uncomplicated; Z59.0 Homelessness
CPT/HCPCS: 83036; 84439; 84443

== ENCOUNTER 2020-06-04 15:30 | Inpatient (IN) | payer MEDICARE, MEDICAID ==
[~2020-06-04] VITALS: Ht 175.3 cm; Wt 125.2 kg
[~2020-06-04 15:30] MED LIST changes: +FLUO-191 PO
[2020-06-04] MEDS ORDERED: ZOLPIDEM TARTRATE 10 MG TABLET PO PRN (18:00)
[2020-06-04 18:54] VITALS: BP 141/82
[2020-06-04] MEDS ORDERED: INFLUENZA VIRUS VACCINE QVS 2020-21 (6MO+)/PF 60 MCG/0.5 ML SYRINGE IM ONE (19:00)
[2020-06-04] MEDS ORDERED: PNEUMOCOCCAL VACCINE POLYVALENT 0.5 ML VIAL [PPSV23] IM ONE (19:00)
[2020-06-05 05:27] VITALS: BP 124/82
[2020-06-05 07:28] LABS: BASOPHILS % (AUTO) 0.8 % (0.0-2.0); EOSINOPHILS % (AUTO) 1.8 % (1.0-6.0); HEMATOCRIT 40.2 % (36-46); HEMOGLOBIN 13.4 g/dL (12.0-16.0); LYMPHOCYTES # (AUTO) 1.5 K/uL (1.0-4.8); LYMPHOCYTES % (AUTO) 37.5 % (22.0-44.0); MEAN CORPUSCULAR HEMOGLOBIN 27.4 pg (26.0-34.0); MEAN CORPUSCULAR HGB CONC 33.2 G/dL (31.0-37.0); MEAN CORPUSCULAR VOLUME 83 fL (80-100); MONOCYTES # (AUTO) 0.3 K/uL (0.1-1.0); MONOCYTES % (AUTO) 7.2 % (2.0-9.0); NEUTROPHILS # (AUTO) 2.1 K/uL (1.8-7.7); NEUTROPHILS % (AUTO) 52.7 % (40.0-70.0); PLATELET COUNT (AUTO) 249 K/uL (150-450); RED BLOOD CELL COUNT(AUTO) 4.87 MIL/uL (4.00-5.20); RED CELL DISTRIBUTION WIDTH 14.4 % (11.5-14.5)
[2020-06-05 07:44] LABS: HEMOGLOBIN A1C 5.6 % (3.8-5.6)
[2020-06-05 07:51] LABS: ALANINE AMINOTRANSFERASE 37 U/L (12-78); ALBUMIN 3.2 g/dL (3.4-5.0); ALKALINE PHOSPHATASE 116 U/L (46-116); ANION GAP 8 mmol/L (8-16); ASPARTATE AMINOTRANSFERASE 19 U/L (15-37); BILIRUBIN,TOTAL 0.2 mg/dL (0.1-1.0); CALCIUM, TOTAL 9.3 mg/dL (8.8-10.5); CARBON DIOXIDE 26 mmol/L (22-29); CHLORIDE 105 mmol/L (98-107); CHOL/HDL RATIO 5.6 (3.9-5.7); CHOLESTEROL 236 mg/dL (131-200); CREATININE 0.85 mg/dL (0.60-1.30); FREE T4 (FREE THYROXINE) 0.75 ng/dL (0.76-1.46); GLOMERULAR FILTR. RATE CALC > 60 mL/min (>60); GLUCOSE,RANDOM 86 mg/dL (70-110); HDL CHOLESTEROL 42 mg/dL (40-60); LDL CHOL (CALC.) 173 mg/dL (0-130); POTASSIUM 4.5 mmol/L (3.5-5.1); SODIUM SERUM 139 mmol/L (136-145); THYROID STIMULATING HORMONE 3.42 uIU/mL (0.36-3.74); TOTAL PROTEIN, SERUM 6.5 g/dL (6.4-8.2); TRIGLYCERIDES 106 mg/dL (15-150); UREA NITROGEN, BLOOD 15 mg/dL (7-18)
[2020-06-05 08:19] VITALS: BP 105/61
[2020-06-05] MEDS: NICOTINE 14 MG/24 HOUR PATCH TD SCH (08:28)
[2020-06-05] MEDS ORDERED: ALBUTEROL SULFATE HFA 90 MCG/PUFF 8 GM INHALER IH PRN (09:00)
[2020-06-05] MEDS ORDERED: DOCUSATE SODIUM 100 MG CAPSULE PO PRN (09:00)
[2020-06-05] MEDS ORDERED: NICOTINE 14 MG/24 HOUR PATCH TD PRN (09:00)
[2020-06-05] MEDS ORDERED: IBUPROFEN 400 MG TABLET PO PRN (09:00)
[2020-06-05] MEDS ORDERED: ONDANSETRON HCL 4 MG TABLET PO PRN (09:00)
[2020-06-05] MEDS ORDERED: LOPERAMIDE HCL 2 MG CAPSULE PO PRN (09:00)
[2020-06-05] MEDS ORDERED: PETROLATUM,WHITE 28 GM JELLY TP PRN (09:00)
[2020-06-05] MEDS ORDERED: GuaiFENesin/D-METHORPHAN [SUGAR-FREE] 200-20MG/10 ML SYRUP UDCUP PO PRN (09:00)
[2020-06-05] MEDS ORDERED: MAGNESIUM HYDROXIDE SUSPENSION 30 ML UDCUP PO PRN (09:00)
[2020-06-05] MEDS ORDERED: CloNIDine HCL 0.1 MG TABLET PO PRN (09:00)
[2020-06-05] MEDS ORDERED: ACETAMINOPHEN 325 MG TABLET PO PRN (09:00)
[2020-06-05] MEDS ORDERED: MAG HYDROX/AL HYDROX/SIMETH ES 30 ML SUSPENSION UDCUP PO PRN (09:00)
[2020-06-05] MEDS: LORazepam 2 MG TABLET PO PRN ×2 (09:45→20:42)
[2020-06-05] MEDS: HALOPERIDOL 5 MG TABLET PO PRN (09:45)
[2020-06-05] MEDS: ARIPiprazole 15 MG TABLET PO SCH (14:14)
[2020-06-05 16:11] VITALS: BP 146/93
[2020-06-06 01:49] VITALS: BP 132/85
[2020-06-06 08:22] VITALS: BP 128/79
[2020-06-06] MEDS: ARIPiprazole 15 MG TABLET PO SCH (09:39)
[2020-06-06] MEDS: NICOTINE 14 MG/24 HOUR PATCH TD SCH (09:39)
[2020-06-06] MEDS ORDERED: ChlorproMAZINE HCL 25 MG TABLET PO PRN (13:30)
[2020-06-06 17:27] VITALS: BP 143/92
[2020-06-07 01:07] VITALS: BP 126/87
[2020-06-07 08:34] VITALS: BP 130/78
[2020-06-07] MEDS: NICOTINE 14 MG/24 HOUR PATCH TD SCH (10:29)
[2020-06-07] MEDS: ARIPiprazole 15 MG TABLET PO SCH (10:29)
[2020-06-07] MEDS: LORazepam 2 MG TABLET PO PRN (10:30)
[2020-06-07] MEDS: HALOPERIDOL 5 MG TABLET PO PRN (10:30)
[2020-06-07] MEDS ORDERED: ARIP15TA2 PO (13:42)
== END 2020-06-07 14:50 | disposition home or self-care (01) | DRG 885 ==
LOC: B3A 17:51
PROVIDERS: ADMIT Psychiatry & Neurology Child & Adolescent Psychiatry; ATTEND Psychiatry & Neurology Child & Adolescent Psychiatry
PROC: 3E0234Z Introduction of Serum, Toxoid and Vaccine into Muscle, Percutaneous Approach (ICD-10-PCS; principal; 2020-06-07)
PROC: 3E02340 Introduction of Influenza Vaccine into Muscle, Percutaneous Approach (ICD-10-PCS; 2020-06-07)
DX: F25.1 Schizoaffective disorder, depressive type (principal); R45.851 Suicidal ideations; Z68.41 Body mass index [BMI] 40.0-44.9, adult; F15.10 Other stimulant abuse, uncomplicated; E78.5 Hyperlipidemia, unspecified; E11.9 Type 2 diabetes mellitus without complications; D72.819 Decreased white blood cell count, unspecified; E66.9 Obesity, unspecified; F10.10 Alcohol abuse, uncomplicated; Z81.8 Family history of other mental and behavioral disorders; Z23 Encounter for immunization
CPT/HCPCS: 83036; 84439; 84443; 87081; 90686; 90732; Q0162

== ENCOUNTER 2020-06-26 17:50 | Inpatient (IN) | payer MEDICARE, MEDICAID ==
[~2020-06-26] VITALS: Ht 177.8 cm; Wt 120.4 kg
[~2020-06-26 17:50] MED LIST changes: +ARIP15TA2 PO; -FLUO-191 PO; -RISP2TAB23 PO
[2020-06-26 20:30] VITALS: BP 130/72
[2020-06-26] MEDS ORDERED: HALOPERIDOL 5 MG TABLET PO PRN (21:00)
[2020-06-27 01:26] VITALS: BP 126/80
[2020-06-27] MEDS ORDERED: -PHARMACY VACCINE NOTE- MISC ONE (02:00)
[2020-06-27] MEDS ORDERED: CloNIDine HCL 0.1 MG TABLET PO PRN (07:00)
[2020-06-27] MEDS ORDERED: IBUPROFEN 400 MG TABLET PO PRN (07:00)
[2020-06-27] MEDS ORDERED: NICOTINE 14 MG/24 HOUR PATCH TD PRN (07:00)
[2020-06-27] MEDS ORDERED: MAG HYDROX/AL HYDROX/SIMETH ES 30 ML SUSPENSION UDCUP PO PRN (07:00)
[2020-06-27] MEDS ORDERED: LOPERAMIDE HCL 2 MG CAPSULE PO PRN (07:00)
[2020-06-27] MEDS ORDERED: ACETAMINOPHEN 325 MG TABLET PO PRN (07:00)
[2020-06-27] MEDS ORDERED: MAGNESIUM HYDROXIDE SUSPENSION 30 ML UDCUP PO PRN (07:00)
[2020-06-27] MEDS ORDERED: ALBUTEROL SULFATE HFA 90 MCG/PUFF 8 GM INHALER IH PRN (07:00)
[2020-06-27] MEDS ORDERED: GuaiFENesin/D-METHORPHAN [SUGAR-FREE] 200-20MG/10 ML SYRUP UDCUP PO PRN (07:00)
[2020-06-27] MEDS ORDERED: DOCUSATE SODIUM 100 MG CAPSULE PO PRN (07:00)
[2020-06-27] MEDS ORDERED: PETROLATUM,WHITE 28 GM JELLY TP PRN (07:00)
[2020-06-27] MEDS ORDERED: ONDANSETRON HCL 4 MG TABLET PO PRN (07:00)
[2020-06-27 08:55] VITALS: BP 107/63
[2020-06-27] MEDS ORDERED: ARIPiprazole 15 MG TABLET PO SCH (09:00)
[2020-06-27] MEDS ORDERED: ChlorproMAZINE HCL 25 MG TABLET PO PRN (12:15)
[2020-06-27 18:01] VITALS: BP 105/60
[2020-06-28 05:39] VITALS: BP 110/65
[2020-06-28] MEDS: ARIPiprazole 15 MG TABLET PO SCH (08:48)
[2020-06-28] MEDS: ZOLPIDEM TARTRATE 10 MG TABLET PO PRN (20:32)
[2020-06-29] MEDS: LORazepam 2 MG TABLET PO PRN ×2 (00:41→18:15)
[2020-06-29 00:50] VITALS: BP 134/76
[2020-06-29 08:39] VITALS: BP 144/81
[2020-06-29] MEDS: ARIPiprazole 15 MG TABLET PO SCH (10:00)
[2020-06-30 00:27] VITALS: BP 132/77
[2020-06-30] MEDS: LORazepam 2 MG TABLET PO PRN ×2 (08:05→14:05)
[2020-06-30] MEDS: ARIPiprazole 15 MG TABLET PO SCH (08:05)
[2020-06-30 08:28] VITALS: BP 120/75
[2020-06-30 08:33] LABS: BASOPHILS % (AUTO) 0.5 % (0.0-2.0); EOSINOPHILS % (AUTO) 1.2 % (1.0-6.0); HEMATOCRIT 42.8 % (36-46); LYMPHOCYTES # (AUTO) 2.1 K/uL (1.0-4.8); LYMPHOCYTES % (AUTO) 43.3 % (22.0-44.0); MEAN CORPUSCULAR HEMOGLOBIN 27.3 pg (26.0-34.0); MEAN CORPUSCULAR HGB CONC 32.7 G/dL (31.0-37.0); MEAN CORPUSCULAR VOLUME 83 fL (80-100); MONOCYTES # (AUTO) 0.3 K/uL (0.1-1.0); MONOCYTES % (AUTO) 6.8 % (2.0-9.0); NEUTROPHILS # (AUTO) 2.3 K/uL (1.8-7.7); NEUTROPHILS % (AUTO) 48.2 % (40.0-70.0); PLATELET COUNT (AUTO) 259 K/uL (150-450); RED BLOOD CELL COUNT(AUTO) 5.13 MIL/uL (4.00-5.20); RED CELL DISTRIBUTION WIDTH 15.2 % (11.5-14.5)
[2020-06-30 08:49] LABS: HEMOGLOBIN A1C 5.5 % (3.8-5.6)
[2020-06-30 09:32] LABS: ALANINE AMINOTRANSFERASE 26 U/L (12-78); ALBUMIN 3.6 g/dL (3.4-5.0); ALKALINE PHOSPHATASE 118 U/L (46-116); ANION GAP 8 mmol/L (8-16); ASPARTATE AMINOTRANSFERASE 14 U/L (15-37); BILIRUBIN,TOTAL 0.4 mg/dL (0.1-1.0); CALCIUM, TOTAL 9.5 mg/dL (8.8-10.5); CARBON DIOXIDE 29 mmol/L (22-29); CHLORIDE 102 mmol/L (98-107); CHOL/HDL RATIO 5.3 (3.9-5.7); CHOLESTEROL 245 mg/dL (131-200); CREATININE 0.85 mg/dL (0.60-1.30); FREE T4 (FREE THYROXINE) 0.89 ng/dL (0.76-1.46); GLOMERULAR FILTR. RATE CALC > 60 mL/min (>60); HDL CHOLESTEROL 46 mg/dL (40-60); LDL CHOL (CALC.) 176 mg/dL (0-130); POTASSIUM 4.6 mmol/L (3.5-5.1); SODIUM SERUM 139 mmol/L (136-145); TOTAL PROTEIN, SERUM 7.6 g/dL (6.4-8.2); TRIGLYCERIDES 114 mg/dL (15-150); UREA NITROGEN, BLOOD 15 mg/dL (7-18)
[2020-06-30 09:39] LABS: GLUCOSE,RANDOM 82 mg/dL (70-110)
[2020-06-30 16:57] VITALS: BP 108/63
[2020-07-01 00:43] VITALS: BP 116/68
[2020-07-01 02:15] VITALS: BP 132/83
[2020-07-01] MEDS: LORazepam 2 MG TABLET PO PRN ×2 (02:16→15:57)
[2020-07-01 08:43] VITALS: BP 111/69
[2020-07-01] MEDS: ARIPiprazole 15 MG TABLET PO SCH (08:55)
[2020-07-01 16:09] VITALS: BP 120/67
[2020-07-02] MEDS: ZOLPIDEM TARTRATE 10 MG TABLET PO PRN ×2 (02:17→21:37)
[2020-07-02 08:18] VITALS: BP 113/78
[2020-07-02] MEDS: ARIPiprazole 15 MG TABLET PO SCH (08:58)
[2020-07-02] MEDS: LORazepam 2 MG TABLET PO PRN (14:53)
[2020-07-02 16:38] VITALS: BP 118/65
[2020-07-03 06:18] VITALS: BP 128/82
[2020-07-03 08:09] VITALS: BP 128/79
[2020-07-03] MEDS: ARIPiprazole 15 MG TABLET PO SCH (08:26)
[2020-07-03 16:11] VITALS: BP 109/83
[2020-07-03] MEDS: LORazepam 2 MG TABLET PO PRN (17:18)
[2020-07-03] MEDS ORDERED: GABAPENTIN 300 MG CAPSULE PO SCH (21:00)
[2020-07-04 02:30] VITALS: BP 135/86
[2020-07-04] MEDS: LORazepam 2 MG TABLET PO PRN (03:44)
[2020-07-04 08:09] VITALS: BP 102/62
[2020-07-04] MEDS: ARIPiprazole 15 MG TABLET PO SCH (08:33)
[2020-07-04] MEDS ORDERED: GABA-1181 PO (12:48)
[2020-07-04] MEDS ORDERED: ARIP15TA2 PO (12:48)
== END 2020-07-04 15:30 | disposition home or self-care (01) | DRG 885 ==
LOC: B2S 20:44
PROVIDERS: ADMIT Psychiatry & Neurology Child & Adolescent Psychiatry; ATTEND Psychiatry & Neurology Child & Adolescent Psychiatry
DX: F25.1 Schizoaffective disorder, depressive type (principal); R45.851 Suicidal ideations; E11.9 Type 2 diabetes mellitus without complications; E66.9 Obesity, unspecified; E78.5 Hyperlipidemia, unspecified; F10.10 Alcohol abuse, uncomplicated; K59.00 Constipation, unspecified; F41.9 Anxiety disorder, unspecified; F19.10 Other psychoactive substance abuse, uncomplicated; Z68.38 Body mass index [BMI] 38.0-38.9, adult; Z88.0 Allergy status to penicillin; Z91.040 Latex allergy status; Z91.018 Allergy to other foods; Z79.899 Other long term (current) drug therapy
CPT/HCPCS: 83036; 84436; 84439; 87081

== ENCOUNTER 2020-06-26 21:29 | Emergency (ER) | payer MEDICARE, MEDICAID ==
[~2020-06-26] VITALS: Ht 172.7 cm; Wt 113.6 kg
[2020-06-26 21:54] LABS: COVID AG,FIA SOURCE NASOPHARYNGEAL
[2020-06-26 23:45] VITALS: BP 133/80
== END 2020-06-27 00:45 | disposition home or self-care (01) ==
LOC: EMS 21:36
DX: R45.851 Suicidal ideations (principal); F32.9 Major depressive disorder, single episode, unspecified; F20.9 Schizophrenia, unspecified; Z20.828 Contact with and (suspected) exposure to other viral communicable diseases; Z91.040 Latex allergy status; Z88.0 Allergy status to penicillin; Z91.018 Allergy to other foods
CPT/HCPCS: 36415; 87426; 99284; G0480

== ENCOUNTER 2020-07-15 16:07 | Inpatient (IN) | payer MEDICARE, MEDICAID ==
[~2020-07-15] VITALS: Ht 175.3 cm; Wt 113.4 kg
[~2020-07-15 16:07] MED LIST changes: +GABA-1181 PO
[2020-07-15 16:56] LABS: AMPHET/METH SCREEN,URINE POSITIVE (NEGATIVE); BARBITURATE SCREEN, URINE NEGATIVE (NEGATIVE); BENZODIAZEPINES SCREEN,URINE NEGATIVE (NEGATIVE); CANNABINOID SCREEN,URINE POSITIVE (NEGATIVE); COCAINE SCREEN,URINE NEGATIVE (NEGATIVE); METHADONE SCREEN, URINE NEGATIVE (NEGATIVE); OPIATE SCREEN,URINE NEGATIVE (NEGATIVE)
[2020-07-15 16:57] LABS: PHENCYCLIDINE SCREEN,URINE NEGATIVE (NEGATIVE)
[2020-07-15 17:07] LABS: BASOPHILS % (AUTO) 0.6 % (0.0-2.0); EOSINOPHILS % (AUTO) 1.2 % (1.0-6.0); HEMATOCRIT 36.9 % (36-46); HEMOGLOBIN 11.9 g/dL (12.0-16.0); LYMPHOCYTES # (AUTO) 1.9 K/uL (1.0-4.8); LYMPHOCYTES % (AUTO) 25.4 % (22.0-44.0); MEAN CORPUSCULAR HEMOGLOBIN 26.7 pg (26.0-34.0); MEAN CORPUSCULAR HGB CONC 32.4 G/dL (31.0-37.0); MEAN CORPUSCULAR VOLUME 83 fL (80-100); MONOCYTES # (AUTO) 0.7 K/uL (0.1-1.0); MONOCYTES % (AUTO) 9.8 % (2.0-9.0); NEUTROPHILS # (AUTO) 4.7 K/uL (1.8-7.7); PLATELET COUNT (AUTO) 287 K/uL (150-450); RED BLOOD CELL COUNT(AUTO) 4.47 MIL/uL (4.00-5.20); RED CELL DISTRIBUTION WIDTH 15.1 % (11.5-14.5)
[2020-07-15 17:20] LABS: ANION GAP 6 mmol/L (8-16); CALCIUM, TOTAL 8.8 mg/dL (8.8-10.5); CARBON DIOXIDE 28 mmol/L (22-29); CHLORIDE 107 mmol/L (98-107); CREATININE 1.13 mg/dL (0.60-1.30); GLOMERULAR FILTR. RATE CALC > 60 mL/min (>60); GLUCOSE,RANDOM 105 mg/dL (70-110); POTASSIUM 3.8 mmol/L (3.5-5.1); SODIUM SERUM 141 mmol/L (136-145); UREA NITROGEN, BLOOD 16 mg/dL (7-18)
[2020-07-15 17:25] LABS: ALANINE AMINOTRANSFERASE 65 U/L (12-78); ALBUMIN 3.4 g/dL (3.4-5.0); ALKALINE PHOSPHATASE 113 U/L (46-116); ASPARTATE AMINOTRANSFERASE 33 U/L (15-37); BILIRUBIN,TOTAL 0.3 mg/dL (0.1-1.0); TOTAL PROTEIN, SERUM 7.3 g/dL (6.4-8.2)
[2020-07-15 17:49] LABS: COVID AG,FIA SOURCE NASOPHARYNGEAL
[2020-07-15] MEDS ORDERED: HALOPERIDOL 5 MG TABLET PO PRN (18:45)
[2020-07-15] MEDS ORDERED: LORazepam 2 MG TABLET PO PRN (18:45)
[2020-07-15] MEDS ORDERED: ZOLPIDEM TARTRATE 10 MG TABLET PO PRN (18:45)
[2020-07-15 20:56] VITALS: BP 117/72
[2020-07-15 21:23] LABS: GLUCOMETER DEV NAME(LOC) BV2S.; GLUCOSE,POINT OF CARE 87 MG/DL (70-110)
[2020-07-16] VITALS: BP 121/67
[2020-07-16] MEDS ORDERED: CloNIDine HCL 0.1 MG TABLET PO PRN (07:15)
[2020-07-16] MEDS ORDERED: MAG HYDROX/AL HYDROX/SIMETH ES 30 ML SUSPENSION UDCUP PO PRN (07:15)
[2020-07-16] MEDS ORDERED: MAGNESIUM HYDROXIDE SUSPENSION 30 ML UDCUP PO PRN (07:15)
[2020-07-16] MEDS ORDERED: PETROLATUM,WHITE 28 GM JELLY TP PRN (07:15)
[2020-07-16] MEDS ORDERED: IBUPROFEN 400 MG TABLET PO PRN (07:15)
[2020-07-16] MEDS ORDERED: LOPERAMIDE HCL 2 MG CAPSULE PO PRN (07:15)
[2020-07-16] MEDS ORDERED: GuaiFENesin/D-METHORPHAN [SUGAR-FREE] 200-20MG/10 ML SYRUP UDCUP PO PRN (07:15)
[2020-07-16] MEDS ORDERED: DOCUSATE SODIUM 100 MG CAPSULE PO PRN (07:15)
[2020-07-16] MEDS ORDERED: ONDANSETRON HCL 4 MG TABLET PO PRN (07:15)
[2020-07-16] MEDS ORDERED: ALBUTEROL SULFATE HFA 90 MCG/PUFF 8 GM INHALER IH PRN (07:15)
[2020-07-16] MEDS ORDERED: NICOTINE 14 MG/24 HOUR PATCH TD PRN (07:15)
[2020-07-16] MEDS: ACETAMINOPHEN 325 MG TABLET PO PRN (08:24)
[2020-07-16 09:36] VITALS: BP 101/70
[2020-07-16] MEDS: ARIPiprazole 10 MG TABLET PO SCH (15:35)
[2020-07-16 16:20] VITALS: BP 100/60
[2020-07-16] MEDS: GABAPENTIN 300 MG CAPSULE PO SCH (20:23)
[2020-07-17 05:05] VITALS: BP 110/68
[2020-07-17 08:24] LABS: CHOL/HDL RATIO 4.8 (3.9-5.7); THYROID STIMULATING HORMONE 1.33 uIU/mL (0.36-3.74)
[2020-07-17 08:32] VITALS: BP 107/64
[2020-07-17] MEDS: ARIPiprazole 10 MG TABLET PO SCH (08:36)
[2020-07-17] MEDS ORDERED: MULTIVITAMINS WITH IRON TABLET PO ONE (13:00)
[2020-07-17 16:10] VITALS: BP 130/70
[2020-07-17] MEDS: GABAPENTIN 300 MG CAPSULE PO SCH (20:24)
[2020-07-18 06:10] VITALS: BP 102/63
[2020-07-18] MEDS: ARIPiprazole 10 MG TABLET PO SCH (08:14)
[2020-07-18] MEDS: MULTIVITAMINS WITH IRON TABLET PO SCH (08:14)
[2020-07-18 08:35] VITALS: BP 132/78
[2020-07-18 17:36] VITALS: BP 101/64
[2020-07-18] MEDS: GABAPENTIN 300 MG CAPSULE PO SCH (20:41)
[2020-07-19 00:23] VITALS: BP 108/61
[2020-07-19 05:30] VITALS: BP 110/64
[2020-07-19] MEDS: ACETAMINOPHEN 325 MG TABLET PO PRN (05:31)
[2020-07-19 08:34] VITALS: BP 118/88
[2020-07-19] MEDS: ARIPiprazole 10 MG TABLET PO SCH (08:43)
[2020-07-19] MEDS: MULTIVITAMINS WITH IRON TABLET PO SCH (08:49)
[2020-07-19] MEDS ORDERED: ARIP10TA8 PO (12:04)
== END 2020-07-19 13:52 | disposition home or self-care (01) | DRG 885 ==
LOC: EMS 16:14 → UNDOADMIN 18:34 → B2S 18:34 → UNDOADMIN 19:00
PROVIDERS: ADMIT Psychiatry & Neurology Child & Adolescent Psychiatry; ATTEND Psychiatry & Neurology Child & Adolescent Psychiatry
DX: F25.1 Schizoaffective disorder, depressive type (principal); R45.851 Suicidal ideations; E11.9 Type 2 diabetes mellitus without complications; E66.9 Obesity, unspecified; E78.5 Hyperlipidemia, unspecified; F10.10 Alcohol abuse, uncomplicated; K59.00 Constipation, unspecified; Z79.899 Other long term (current) drug therapy; Z68.36 Body mass index [BMI] 36.0-36.9, adult; Z20.828 Contact with and (suspected) exposure to other viral communicable diseases
CPT/HCPCS: 83036; 84443; 87081; 87426; G0480

== ENCOUNTER 2020-09-01 18:42 | Inpatient (IN) | payer MEDICARE, MEDICAID ==
[~2020-09-01] VITALS: Ht 172.7 cm; Wt 117.0 kg
[~2020-09-01 18:42] MED LIST changes: +ARIP10TA8 PO; -ARIP15TA2 PO
[2020-09-01 21:06] LABS: BASOPHILS % (AUTO) 0.4 % (0.0-2.0); EOSINOPHILS % (AUTO) 0.5 % (1.0-6.0); HEMATOCRIT 37.8 % (36-46); HEMOGLOBIN 12.1 g/dL (12.0-16.0); LYMPHOCYTES # (AUTO) 1.5 K/uL (1.0-4.8); LYMPHOCYTES % (AUTO) 35.2 % (22.0-44.0); MEAN CORPUSCULAR HEMOGLOBIN 26.7 pg (26.0-34.0); MEAN CORPUSCULAR VOLUME 84 fL (80-100); MONOCYTES # (AUTO) 0.5 K/uL (0.1-1.0); MONOCYTES % (AUTO) 10.7 % (2.0-9.0); NEUTROPHILS # (AUTO) 2.3 K/uL (1.8-7.7); NEUTROPHILS % (AUTO) 53.2 % (40.0-70.0); PLATELET COUNT (AUTO) 230 K/uL (150-450); RED BLOOD CELL COUNT(AUTO) 4.53 MIL/uL (4.00-5.20); RED CELL DISTRIBUTION WIDTH 14.4 % (11.5-14.5)
[2020-09-01 21:35] LABS: ANION GAP 8 mmol/L (8-16); CALCIUM, TOTAL 8.5 mg/dL (8.8-10.5); CARBON DIOXIDE 28 mmol/L (22-29); CHLORIDE 107 mmol/L (98-107); CREATININE 1.06 mg/dL (0.60-1.30); GLOMERULAR FILTR. RATE CALC > 60 mL/min (>60); GLUCOSE,RANDOM 93 mg/dL (70-110); POTASSIUM 4.3 mmol/L (3.5-5.1); SODIUM SERUM 143 mmol/L (136-145); UREA NITROGEN, BLOOD 15 mg/dL (7-18)
[2020-09-01 21:39] LABS: ALANINE AMINOTRANSFERASE 33 U/L (12-78); ALKALINE PHOSPHATASE 119 U/L (46-116); ASPARTATE AMINOTRANSFERASE 20 U/L (15-37); BILIRUBIN,TOTAL 0.2 mg/dL (0.1-1.0); TOTAL PROTEIN, SERUM 7.2 g/dL (6.4-8.2)
[2020-09-01 21:43] LABS: COVID AG,FIA SOURCE NASOPHARYNGEAL
[2020-09-01] MEDS ORDERED: HALOPERIDOL 5 MG TABLET PO PRN (23:30)
[2020-09-02] MEDS ORDERED: -PHARMACY VACCINE NOTE- MISC ONE (04:45)
[2020-09-02] MEDS ORDERED: CloNIDine HCL 0.1 MG TABLET PO PRN (07:00)
[2020-09-02] MEDS ORDERED: ONDANSETRON HCL 4 MG TABLET PO PRN (07:00)
[2020-09-02] MEDS ORDERED: LOPERAMIDE HCL 2 MG CAPSULE PO PRN (07:00)
[2020-09-02] MEDS ORDERED: PETROLATUM,WHITE 28 GM JELLY TP PRN (07:00)
[2020-09-02] MEDS ORDERED: ACETAMINOPHEN 325 MG TABLET PO PRN (07:00)
[2020-09-02] MEDS ORDERED: DOCUSATE SODIUM 100 MG CAPSULE PO PRN (07:00)
[2020-09-02] MEDS ORDERED: ALBUTEROL SULFATE HFA 90 MCG/PUFF 8 GM INHALER IH PRN (07:00)
[2020-09-02] MEDS ORDERED: IBUPROFEN 400 MG TABLET PO PRN (07:00)
[2020-09-02] MEDS ORDERED: GuaiFENesin/D-METHORPHAN [SUGAR-FREE] 200-20MG/10 ML SYRUP UDCUP PO PRN (07:00)
[2020-09-02] MEDS ORDERED: MAGNESIUM HYDROXIDE SUSPENSION 30 ML UDCUP PO PRN (07:00)
[2020-09-02] MEDS ORDERED: NICOTINE 14 MG/24 HOUR PATCH TD PRN (07:00)
[2020-09-02 08:03] VITALS: BP 109/71
[2020-09-02] MEDS: ARIPiprazole 10 MG TABLET PO SCH (14:15)
[2020-09-02] MEDS: GABAPENTIN 300 MG CAPSULE PO SCH (20:16)
[2020-09-03] MEDS: ARIPiprazole 10 MG TABLET PO SCH (08:19)
[2020-09-03 17:21] VITALS: BP 113/63
[2020-09-03] MEDS: LORazepam 2 MG TABLET PO PRN (20:16)
[2020-09-03] MEDS: GABAPENTIN 300 MG CAPSULE PO SCH (20:16)
[2020-09-04] MEDS: LORazepam 2 MG TABLET PO PRN ×2 (08:16→15:25)
[2020-09-04] MEDS: ARIPiprazole 10 MG TABLET PO SCH (08:16)
[2020-09-04 08:33] VITALS: BP 100/67
[2020-09-04 16:05] VITALS: BP 117/63
[2020-09-04] MEDS: GABAPENTIN 300 MG CAPSULE PO SCH (20:02)
[2020-09-05 05:41] VITALS: BP 103/60
[2020-09-05] MEDS: LORazepam 2 MG TABLET PO PRN ×2 (07:09→16:37)
[2020-09-05] MEDS: ARIPiprazole 10 MG TABLET PO SCH (08:06)
[2020-09-05 08:18] VITALS: BP 114/60
[2020-09-05 16:05] VITALS: BP 104/74
[2020-09-05] MEDS: MAG HYDROX/AL HYDROX/SIMETH ES 30 ML SUSPENSION UDCUP PO PRN (19:26)
[2020-09-05] MEDS: GABAPENTIN 300 MG CAPSULE PO SCH (20:16)
[2020-09-05] MEDS: ZOLPIDEM TARTRATE 10 MG TABLET PO PRN (20:16)
[2020-09-06 05:02] VITALS: BP 133/86
[2020-09-06 07:49] LABS: COVID AG,FIA SOURCE NASOPHARYNGEAL
[2020-09-06 07:52] LABS: CHOL/HDL RATIO 5.3 (3.9-5.7)
[2020-09-06 08:13] VITALS: BP 118/69
[2020-09-06] MEDS: LORazepam 2 MG TABLET PO PRN (08:22)
[2020-09-06] MEDS: ARIPiprazole 10 MG TABLET PO SCH (08:22)
[2020-09-06 08:25] LABS: HEMOGLOBIN A1C 5.6 % (3.8-5.6)
[2020-09-06 08:42] LABS: FREE T4 (FREE THYROXINE) 1.02 ng/dL (0.76-1.46); THYROID STIMULATING HORMONE 4.38 uIU/mL (0.36-3.74)
[2020-09-06 16:09] VITALS: BP 132/77
[2020-09-06] MEDS: GABAPENTIN 300 MG CAPSULE PO SCH (20:10)
[2020-09-06] MEDS: ZOLPIDEM TARTRATE 10 MG TABLET PO PRN (20:22)
[2020-09-06] MEDS: MAG HYDROX/AL HYDROX/SIMETH ES 30 ML SUSPENSION UDCUP PO PRN (20:23)
[2020-09-07] MEDS: LORazepam 2 MG TABLET PO PRN ×2 (00:05→08:24)
[2020-09-07 01:20] VITALS: BP 139/86
[2020-09-07] MEDS: ARIPiprazole 10 MG TABLET PO SCH (08:24)
[2020-09-07 08:29] VITALS: BP 124/78
== END 2020-09-07 13:52 | disposition home or self-care (01) | DRG 885 ==
LOC: EMS 18:44 → B2S 23:00
DX: F25.1 Schizoaffective disorder, depressive type (principal); R45.851 Suicidal ideations; Z20.822 Contact with and (suspected) exposure to COVID-19; E66.9 Obesity, unspecified; E78.5 Hyperlipidemia, unspecified; F15.10 Other stimulant abuse, uncomplicated; G40.909 Epilepsy, unspecified, not intractable, without status epilepticus; F32.9 Major depressive disorder, single episode, unspecified; E11.9 Type 2 diabetes mellitus without complications; Z88.0 Allergy status to penicillin; Z91.040 Latex allergy status; Z91.018 Allergy to other foods; Z79.899 Other long term (current) drug therapy; Z81.8 Family history of other mental and behavioral disorders; Z91.5 Personal history of self-harm; Z68.39 Body mass index [BMI] 39.0-39.9, adult
CPT/HCPCS: 83036; 84439; 84443; 87426; 99285; G0480

== ENCOUNTER 2020-09-28 17:56 | Inpatient (IN) | payer MEDICARE, MEDICAID ==
[~2020-09-28] VITALS: Ht 172.7 cm; Wt 121.1 kg
[2020-09-28] MEDS ORDERED: DOCUSATE SODIUM 100 MG CAPSULE PO ONE (19:15)
[2020-09-28] MEDS ORDERED: LORazepam 1 MG TABLET PO ONE (19:15)
[2020-09-28] MEDS ORDERED: HALOPERIDOL 5 MG TABLET PO ONE (19:15)
[2020-09-28 20:05] LABS: COVID AG,FIA SOURCE NASOPHARYNGEAL
[2020-09-28 20:13] LABS: BASOPHILS % (AUTO) 0.8 % (0.0-2.0); EOSINOPHILS % (AUTO) 0.9 % (1.0-6.0); HEMATOCRIT 40.4 % (36-46); LYMPHOCYTES # (AUTO) 2.2 K/uL (1.0-4.8); MEAN CORPUSCULAR HEMOGLOBIN 26.6 pg (26.0-34.0); MEAN CORPUSCULAR HGB CONC 32.2 G/dL (31.0-37.0); MEAN CORPUSCULAR VOLUME 83 fL (80-100); MONOCYTES # (AUTO) 0.6 K/uL (0.1-1.0); MONOCYTES % (AUTO) 8.5 % (2.0-9.0); NEUTROPHILS # (AUTO) 4.4 K/uL (1.8-7.7); NEUTROPHILS % (AUTO) 59.8 % (40.0-70.0); PLATELET COUNT (AUTO) 299 K/uL (150-450); RED BLOOD CELL COUNT(AUTO) 4.88 MIL/uL (4.00-5.20); RED CELL DISTRIBUTION WIDTH 14.2 % (11.5-14.5)
[2020-09-28 20:18] LABS: AMPHET/METH SCREEN,URINE NEGATIVE (NEGATIVE); BARBITURATE SCREEN, URINE NEGATIVE (NEGATIVE); BENZODIAZEPINES SCREEN,URINE NEGATIVE (NEGATIVE); CANNABINOID SCREEN,URINE NEGATIVE (NEGATIVE); COCAINE SCREEN,URINE NEGATIVE (NEGATIVE); METHADONE SCREEN, URINE NEGATIVE (NEGATIVE); OPIATE SCREEN,URINE NEGATIVE (NEGATIVE)
[2020-09-28 20:23] LABS: PHENCYCLIDINE SCREEN,URINE NEGATIVE (NEGATIVE)
[2020-09-28 20:42] LABS: ANION GAP 6 mmol/L (8-16); CALCIUM, TOTAL 9.5 mg/dL (8.8-10.5); CARBON DIOXIDE 27 mmol/L (22-29); CHLORIDE 104 mmol/L (98-107); CREATININE 0.99 mg/dL (0.60-1.30); GLOMERULAR FILTR. RATE CALC > 60 mL/min (>60); GLUCOSE,RANDOM 85 mg/dL (70-110); POTASSIUM 3.7 mmol/L (3.5-5.1); SODIUM SERUM 137 mmol/L (136-145); UREA NITROGEN, BLOOD 12 mg/dL (7-18)
[2020-09-28 20:44] LABS: ALANINE AMINOTRANSFERASE 26 U/L (12-78); ALBUMIN 3.4 g/dL (3.4-5.0); ALKALINE PHOSPHATASE 123 U/L (46-116); ASPARTATE AMINOTRANSFERASE 18 U/L (15-37); BILIRUBIN,TOTAL 0.3 mg/dL (0.1-1.0); TOTAL PROTEIN, SERUM 7.5 g/dL (6.4-8.2)
[2020-09-29] MEDS ORDERED: DOCUSATE SODIUM 100 MG CAPSULE PO ONE
[2020-09-29 00:19] VITALS: BP 130/78
[2020-09-29] MEDS: ZOLPIDEM TARTRATE 10 MG TABLET PO PRN (00:29)
[2020-09-29] MEDS ORDERED: -PHARMACY VACCINE NOTE- MISC ONE (00:45)
[2020-09-29] MEDS ORDERED: ALBUTEROL SULFATE HFA 90 MCG/PUFF 8 GM INHALER IH PRN (07:15)
[2020-09-29] MEDS ORDERED: ONDANSETRON HCL 4 MG TABLET PO PRN (07:15)
[2020-09-29] MEDS ORDERED: PETROLATUM,WHITE 28 GM JELLY TP PRN (07:15)
[2020-09-29] MEDS ORDERED: CloNIDine HCL 0.1 MG TABLET PO PRN (07:15)
[2020-09-29] MEDS ORDERED: LOPERAMIDE HCL 2 MG CAPSULE PO PRN (07:15)
[2020-09-29] MEDS ORDERED: DOCUSATE SODIUM 100 MG CAPSULE PO PRN (07:15)
[2020-09-29] MEDS ORDERED: ACETAMINOPHEN 325 MG TABLET PO PRN (07:15)
[2020-09-29] MEDS ORDERED: MAG HYDROX/AL HYDROX/SIMETH ES 30 ML SUSPENSION UDCUP PO PRN (07:15)
[2020-09-29] MEDS ORDERED: MAGNESIUM HYDROXIDE SUSPENSION 30 ML UDCUP PO PRN (07:15)
[2020-09-29] MEDS ORDERED: NICOTINE 14 MG/24 HOUR PATCH TD PRN (07:15)
[2020-09-29] MEDS ORDERED: GuaiFENesin/D-METHORPHAN [SUGAR-FREE] 200-20MG/10 ML SYRUP UDCUP PO PRN (07:15)
[2020-09-29 08:18] VITALS: BP 103/60
[2020-09-29] MEDS: LORazepam 2 MG TABLET PO PRN (12:10)
[2020-09-29] MEDS: ARIPiprazole 15 MG TABLET PO SCH (12:17)
[2020-09-29 16:10] VITALS: BP 120/70
[2020-09-29] MEDS: QUEtiapine FUMARATE 100 MG TABLET PO PRN (17:11)
[2020-09-29] MEDS: IBUPROFEN 400 MG TABLET PO PRN (17:14)
[2020-09-29] MEDS ORDERED: GABAPENTIN 300 MG CAPSULE PO SCH (21:00)
[2020-09-30 00:42] VITALS: BP 110/73
[2020-09-30] MEDS: LORazepam 2 MG TABLET PO PRN ×3 (01:40→14:26)
[2020-09-30] MEDS: IBUPROFEN 400 MG TABLET PO PRN (01:41)
[2020-09-30] MEDS: ARIPiprazole 15 MG TABLET PO SCH (08:08)
[2020-09-30 08:27] VITALS: BP 110/75
[2020-09-30 16:02] VITALS: BP 112/74
[2020-09-30] MEDS: QUEtiapine FUMARATE 100 MG TABLET PO PRN (16:11)
[2020-09-30] MEDS: ZOLPIDEM TARTRATE 10 MG TABLET PO PRN (20:06)
[2020-10-01 00:12] VITALS: BP 114/77
[2020-10-01] MEDS: LORazepam 2 MG TABLET PO PRN ×3 (05:22→16:52)
[2020-10-01] MEDS: IBUPROFEN 400 MG TABLET PO PRN ×2 (06:25→16:51)
[2020-10-01] MEDS: ARIPiprazole 15 MG TABLET PO SCH (08:05)
[2020-10-01 08:12] VITALS: BP 128/84
[2020-10-01 16:13] VITALS: BP 126/80
[2020-10-01] MEDS: ZOLPIDEM TARTRATE 10 MG TABLET PO PRN (19:51)
[2020-10-02 00:18] VITALS: BP 120/77
[2020-10-02] MEDS: LORazepam 2 MG TABLET PO PRN ×2 (05:45→17:22)
[2020-10-02] MEDS: IBUPROFEN 400 MG TABLET PO PRN (05:45)
[2020-10-02 08:02] VITALS: BP 107/69
[2020-10-02] MEDS: ARIPiprazole 15 MG TABLET PO SCH (08:03)
[2020-10-02] MEDS: QUEtiapine FUMARATE 100 MG TABLET PO PRN ×2 (11:45→19:18)
[2020-10-02 16:08] VITALS: BP 111/60
[2020-10-03] MEDS: LORazepam 2 MG TABLET PO PRN ×4 (01:03→20:23)
[2020-10-03 01:05] VITALS: BP 144/92
[2020-10-03] MEDS: ARIPiprazole 15 MG TABLET PO SCH (08:00)
[2020-10-03 08:05] VITALS: BP 107/63
[2020-10-03] MEDS: QUEtiapine FUMARATE 100 MG TABLET PO PRN ×3 (13:02→20:23)
[2020-10-03 16:09] VITALS: BP 100/69
[2020-10-04] MEDS: LORazepam 2 MG TABLET PO PRN ×3 (06:23→16:33)
[2020-10-04] MEDS: IBUPROFEN 400 MG TABLET PO PRN ×2 (06:24→15:17)
[2020-10-04 06:34] VITALS: BP 149/102
[2020-10-04 07:25] VITALS: BP 106/58
[2020-10-04] MEDS: ARIPiprazole 15 MG TABLET PO SCH (08:09)
[2020-10-04 08:10] VITALS: BP 106/58
[2020-10-04 15:17] VITALS: BP 107/63
[2020-10-04 16:02] VITALS: BP 125/79
[2020-10-04] MEDS: QUEtiapine FUMARATE 100 MG TABLET PO PRN (17:31)
[2020-10-04] MEDS: ZOLPIDEM TARTRATE 10 MG TABLET PO PRN (20:28)
[2020-10-05] MEDS: QUEtiapine FUMARATE 100 MG TABLET PO PRN (00:19)
[2020-10-05] MEDS: LORazepam 2 MG TABLET PO PRN ×2 (00:19→07:04)
[2020-10-05 01:19] VITALS: BP 132/76
[2020-10-05] MEDS: IBUPROFEN 400 MG TABLET PO PRN (07:04)
[2020-10-05] MEDS: ARIPiprazole 15 MG TABLET PO SCH (08:02)
[2020-10-05 08:08] VITALS: BP 116/65
[2020-10-05] MEDS ORDERED: ARIP15TA2 PO (10:06)
[2020-10-05 10:38] LABS: CHOL/HDL RATIO 4.4 (3.9-5.7)
== END 2020-10-05 12:15 | disposition home or self-care (01) | DRG 885 ==
LOC: EMS 17:56 → B3A 21:00
DX: F25.1 Schizoaffective disorder, depressive type (principal); R45.851 Suicidal ideations; Z68.41 Body mass index [BMI] 40.0-44.9, adult; E66.9 Obesity, unspecified; E11.9 Type 2 diabetes mellitus without complications; G40.909 Epilepsy, unspecified, not intractable, without status epilepticus; F41.9 Anxiety disorder, unspecified; Z20.822 Contact with and (suspected) exposure to COVID-19; Z79.899 Other long term (current) drug therapy; Z86.59 Personal history of other mental and behavioral disorders; Z91.14 Patient's other noncompliance with medication regimen
CPT/HCPCS: 87081; 87426; 99285; G0480

== ENCOUNTER 2023-09-02 17:31 | Inpatient (IN) | payer MEDICARE, MEDICAID ==
[~2023-09-02] VITALS: Ht 170.2 cm; Wt 103.9 kg
[~2023-09-02 17:31] MED LIST changes: +ARIP10TA38 PO; -ARIP10TA8 PO; +ARIP15TA27 PO; -GABA-1181 PO
[2023-09-02 17:59] LABS: PH,URINE DRUG SCREEN 5.5 (5.0-8.0)
[2023-09-02 18:05] LABS: AMPHET/METH SCREEN,URINE NEGATIVE (NEGATIVE); BARBITURATE SCREEN, URINE NEGATIVE (NEGATIVE); BENZODIAZEPINES SCREEN,URINE NEGATIVE (NEGATIVE); CANNABINOID SCREEN,URINE POSITIVE (NEGATIVE); COCAINE SCREEN,URINE NEGATIVE (NEGATIVE); METHADONE SCREEN, URINE NEGATIVE (NEGATIVE); OPIATE SCREEN,URINE NEGATIVE (NEGATIVE); PHENCYCLIDINE SCREEN,URINE NEGATIVE (NEGATIVE)
[2023-09-02 18:06] LABS: ALCOHOL, URINE DRUG SCREEN NEGATIVE (NEGATIVE)
[2023-09-02 18:22] LABS: COVID AG,FIA SOURCE NASAL SWAB
[2023-09-02 18:48] LABS: SARS-COV2 (COVID) ANTIGEN,FIA Negative (Negative)
[2023-09-02 19:25] LABS: ANION GAP 9 mmol/L (8-16); CARBON DIOXIDE 27 mmol/L (22-29); CHLORIDE 106 mmol/L (98-107); CREATININE 0.73 mg/dL (0.60-1.30); GLOMERULAR FILTR. RATE CALC > 60 mL/min (>60); GLUCOSE,RANDOM 121 mg/dL (70-110); POTASSIUM 4.1 mmol/L (3.5-5.1); SODIUM SERUM 142 mmol/L (136-145); UREA NITROGEN, BLOOD 15 mg/dL (7-18)
[2023-09-02 19:31] LABS: ALANINE AMINOTRANSFERASE 25 U/L (12-78); ALBUMIN 3.3 g/dL (3.4-5.0); ALKALINE PHOSPHATASE 110 U/L (46-116); ASPARTATE AMINOTRANSFERASE 23 U/L (15-37); BILIRUBIN,TOTAL 0.2 mg/dL (0.1-1.0); TOTAL PROTEIN, SERUM 6.9 g/dL (6.4-8.2)
[2023-09-02 19:54] LABS: ALCOHOL, BLOOD (SERUM) < 3 mg/dL (0-10)
[2023-09-02] MEDS ORDERED: DiphenhydrAMINE HCL 50 MG/ML VIAL IM ONE (20:30)
[2023-09-02] MEDS ORDERED: LORazepam 2 MG/ML VIAL IM ONE (20:30)
[2023-09-02] MEDS ORDERED: HALOPERIDOL LACTATE 5 MG/ML VIAL IM ONE (20:30)
[2023-09-02] MEDS ORDERED: ZOLPIDEM TARTRATE 10 MG TABLET PO PRN (21:45)
[2023-09-02] MEDS ORDERED: ACETAMINOPHEN 325 MG TABLET PO PRN (22:00)
[2023-09-02] MEDS ORDERED: MAGNESIUM HYDROXIDE SUSPENSION 30 ML UDCUP PO PRN (22:00)
[2023-09-02] MEDS ORDERED: ONDANSETRON HCL 4 MG/2 ML VIAL IVP PRN (22:00)
[2023-09-02] MEDS ORDERED: ZOLPIDEM TARTRATE 5 MG TABLET PO PRN (22:00)
[2023-09-02] MEDS ORDERED: BISACODYL 10 MG RECTAL RECTAL SUPPOSITORY PR PRN (22:00)
[2023-09-03] MEDS ORDERED: HEPARIN SODIUM,PORCINE 5,000 UNITS/ML VIAL SQ SCH
[2023-09-03] MEDS ORDERED: PANTOPRAZOLE SODIUM 40 MG DR TABLET PO SCH (09:00)
[2023-09-03] MEDS ORDERED: DOCUSATE SODIUM 100 MG CAPSULE PO SCH (09:00)
[2023-09-03] MEDS: HALOPERIDOL 5 MG TABLET PO PRN (10:47)
[2023-09-03] MEDS: LORazepam 2 MG TABLET PO PRN (10:47)
[2023-09-03 11:30] VITALS: BP 132/90; PULSE 78; RESP 18; TEMP 97.3; O2SAT 97
[2023-09-03] MEDS ORDERED: MAGNESIUM HYDROXIDE SUSPENSION 30 ML UDCUP PO PRN (16:45)
[2023-09-03] MEDS ORDERED: ALBUTEROL SULFATE HFA 90 MCG/PUFF 8 GM INHALER IH PRN (16:45)
[2023-09-03] MEDS ORDERED: ONDANSETRON HCL 4 MG TABLET PO PRN (16:45)
[2023-09-03] MEDS ORDERED: ACETAMINOPHEN 325 MG TABLET PO PRN (16:45)
[2023-09-03] MEDS ORDERED: PETROLATUM,WHITE 28 GM JELLY TP PRN (16:45)
[2023-09-03] MEDS ORDERED: OMEPRAZOLE 20 MG CAPSULE PO PRN (16:45)
[2023-09-03] MEDS ORDERED: BENZOCAINE/MENTHOL LOZENGE PO PRN (16:45)
[2023-09-03] MEDS ORDERED: MAG HYDROX/ALUMINUM HYD/SIMETH ES 30 ML SUSPENSION UDCUP PO PRN (16:45)
[2023-09-03] MEDS ORDERED: CloNIDine HCL 0.1 MG TABLET PO PRN (16:45)
[2023-09-03] MEDS ORDERED: BACITRACIN 28 GM OINTMENT TP PRN (16:45)
[2023-09-03] MEDS ORDERED: DOCUSATE SODIUM 100 MG CAPSULE PO PRN (16:45)
[2023-09-03] MEDS ORDERED: LOPERAMIDE HCL 2 MG CAPSULE PO PRN (16:45)
[2023-09-03 17:26] LABS: GLUCOMETER DEV NAME(LOC) BV2S.; GLUCOSE,POINT OF CARE 84 MG/DL (70-110)
[2023-09-03 20:29] VITALS: BP 110/51; PULSE 66; RESP 17; TEMP 97.5; O2SAT 96
[2023-09-04 00:20] VITALS: BP 137/75; PULSE 62; RESP 18; TEMP 97.7; O2SAT 99
[2023-09-04] MEDS: IBUPROFEN 600 MG TABLET PO PRN (00:27)
[2023-09-04 09:31] VITALS: BP 106/79; PULSE 76; RESP 17; TEMP 97.6; O2SAT 100
[2023-09-04 10:04] LABS: BASOPHILS % (AUTO) 0.7 % (0.0-2.0); EOSINOPHILS % (AUTO) 1.4 % (1.0-6.0); HEMATOCRIT 38.1 % (36-46); HEMOGLOBIN 12.3 g/dL (12.0-16.0); LYMPHOCYTES # (AUTO) 2.2 K/uL (1.0-4.8); MEAN CORPUSCULAR HEMOGLOBIN 27.3 pg (26.0-34.0); MEAN CORPUSCULAR HGB CONC 32.4 G/dL (31.0-37.0); MEAN CORPUSCULAR VOLUME 84 fL (80-100); MONOCYTES # (AUTO) 0.4 K/uL (0.1-1.0); MONOCYTES % (AUTO) 7.4 % (2.0-9.0); NEUTROPHILS # (AUTO) 3.3 K/uL (1.8-7.7); NEUTROPHILS % (AUTO) 54.5 % (40.0-70.0); PLATELET COUNT (AUTO) 245 K/uL (150-450); RED BLOOD CELL COUNT(AUTO) 4.52 MIL/uL (4.00-5.20); RED CELL DISTRIBUTION WIDTH 15.1 % (11.5-14.5); WHITE BLOOD COUNT (AUTO) 6.1 K/uL (4.5-11.0)
[2023-09-04 10:11] LABS: HEMOGLOBIN A1C 5.3 % (3.8-5.6)
[2023-09-04 10:29] LABS: CHOL/HDL RATIO 4.2 (3.9-5.7); FREE T4 (FREE THYROXINE) 0.94 ng/dL (0.76-1.46); THYROID STIMULATING HORMONE 1.67 uIU/mL (0.36-3.74)
[2023-09-04] MEDS: LORazepam 2 MG TABLET PO PRN (14:34)
[2023-09-04] MEDS: NICOTINE 14 MG/24 HOUR PATCH TD SCH (16:28)
[2023-09-04] MEDS: GABAPENTIN 100 MG CAPSULE PO SCH (16:28)
[2023-09-04 21:13] VITALS: BP 112/65; PULSE 54; RESP 18; TEMP 97.3; O2SAT 96
[2023-09-05 02:25] VITALS: BP 130/75; PULSE 62; RESP 16; TEMP 97.5; O2SAT 98
[2023-09-05] MEDS: LORazepam 2 MG TABLET PO PRN ×3 (02:28→22:34)
[2023-09-05 08:40] VITALS: BP 119/68; PULSE 64; RESP 18; TEMP 97.6; O2SAT 98
[2023-09-05] MEDS: NICOTINE 14 MG/24 HOUR PATCH TD SCH (09:30)
[2023-09-05] MEDS: GABAPENTIN 100 MG CAPSULE PO SCH ×2 (09:30→16:37)
[2023-09-05 15:58] VITALS: BP 134/75
[2023-09-05] MEDS ORDERED: BACITRACIN 28 GM OINTMENT TP PRN (16:30)
[2023-09-05 20:31] VITALS: BP 133/78; PULSE 56; RESP 18; TEMP 97.7; O2SAT 99
[2023-09-06] MEDS ORDERED: BACITRACIN 28 GM OINTMENT TP SCH (09:00)
[2023-09-06] MEDS: GABAPENTIN 100 MG CAPSULE PO SCH ×2 (09:01→16:34)
[2023-09-06] MEDS: NICOTINE 14 MG/24 HOUR PATCH TD SCH (09:01)
[2023-09-06 09:22] VITALS: BP 123/72; PULSE 65; RESP 17; TEMP 97.6; O2SAT 97
[2023-09-06] MEDS: ZINC OXIDE 40%/COD LIVER OIL 57 GM PASTE TP SCH ×2 (13:08→16:35)
[2023-09-06] MEDS: LORazepam 2 MG TABLET PO PRN (13:24)
[2023-09-06] MEDS ORDERED: BACITRACIN 28 GM OINTMENT TP PRN (15:45)
[2023-09-06] MEDS: TOPIRAMATE 25 MG TABLET PO SCH (16:34)
[2023-09-06 20:08] VITALS: BP 131/86; PULSE 60; RESP 18; TEMP 98.3; O2SAT 100
[2023-09-07] MEDS: LORazepam 2 MG TABLET PO PRN ×2 (03:39→17:22)
[2023-09-07 09:17] VITALS: BP 118/68; PULSE 74; RESP 18; TEMP 97.9; O2SAT 98
[2023-09-07] MEDS: NICOTINE 14 MG/24 HOUR PATCH TD SCH (09:26)
[2023-09-07] MEDS: TOPIRAMATE 25 MG TABLET PO SCH ×2 (09:26→16:28)
[2023-09-07] MEDS: GABAPENTIN 100 MG CAPSULE PO SCH ×2 (09:26→16:28)
[2023-09-07] MEDS: ZINC OXIDE 40%/COD LIVER OIL 57 GM PASTE TP SCH ×3 (09:28→16:28)
[2023-09-07 17:19] VITALS: BP 130/79
[2023-09-07 20:10] VITALS: BP 116/78; PULSE 55; RESP 20; TEMP 97.7; O2SAT 98
[2023-09-08] MEDS: LORazepam 2 MG TABLET PO PRN ×2 (03:46→15:24)
[2023-09-08 04:58] VITALS: BP 123/74; PULSE 62; RESP 18; TEMP 97.6; O2SAT 99
[2023-09-08] MEDS: IBUPROFEN 600 MG TABLET PO PRN (05:04)
[2023-09-08] MEDS: GABAPENTIN 100 MG CAPSULE PO SCH ×2 (08:22→16:28)
[2023-09-08] MEDS: NICOTINE 14 MG/24 HOUR PATCH TD SCH (08:22)
[2023-09-08] MEDS: TOPIRAMATE 25 MG TABLET PO SCH ×2 (08:22→16:28)
[2023-09-08] MEDS: ZINC OXIDE 40%/COD LIVER OIL 57 GM PASTE TP SCH ×3 (08:31→16:33)
[2023-09-08 09:03] VITALS: BP 117/72; PULSE 64; RESP 17; TEMP 97.9; O2SAT 99
[2023-09-08 20:00] VITALS: BP 121/70; PULSE 58; RESP 18; TEMP 97.6; O2SAT 100
[2023-09-09] MEDS: LORazepam 2 MG TABLET PO PRN ×2 (03:38→14:19)
[2023-09-09 08:16] VITALS: BP 117/70; PULSE 79; RESP 17; TEMP 98; O2SAT 100
[2023-09-09] MEDS: MULTIVITAMINS WITH MINERALS, THERAPEUTIC TABLET PO SCH (08:59)
[2023-09-09] MEDS: TOPIRAMATE 25 MG TABLET PO SCH ×2 (08:59→16:16)
[2023-09-09] MEDS: GABAPENTIN 100 MG CAPSULE PO SCH ×2 (08:59→16:16)
[2023-09-09] MEDS: ZINC OXIDE 40%/COD LIVER OIL 57 GM PASTE TP SCH ×3 (09:00→16:20)
[2023-09-09] MEDS: NICOTINE 14 MG/24 HOUR PATCH TD SCH (09:00)
[2023-09-09] MEDS ORDERED: LITH300C3 PO (16:48)
[2023-09-09 21:39] VITALS: BP 112/64; PULSE 64; RESP 19; TEMP 97.4; O2SAT 98
[2023-09-10] MEDS: GABAPENTIN 100 MG CAPSULE PO SCH ×2 (08:52→16:32)
[2023-09-10] MEDS: NICOTINE 14 MG/24 HOUR PATCH TD SCH (08:52)
[2023-09-10] MEDS: MULTIVITAMINS WITH MINERALS, THERAPEUTIC TABLET PO SCH (08:52)
[2023-09-10] MEDS: TOPIRAMATE 25 MG TABLET PO SCH ×2 (08:52→16:32)
[2023-09-10] MEDS: ZINC OXIDE 40%/COD LIVER OIL 57 GM PASTE TP SCH ×3 (09:00→16:39)
[2023-09-10 12:24] VITALS: BP 120/71; PULSE 60; RESP 19; TEMP 97; O2SAT 99
[2023-09-10] MEDS: LORazepam 2 MG TABLET PO PRN (12:28)
[2023-09-10 20:09] VITALS: BP 123/75; PULSE 70; RESP 18; TEMP 98; O2SAT 98
[2023-09-11] MEDS: LORazepam 2 MG TABLET PO PRN ×2 (04:32→12:09)
[2023-09-11 08:23] VITALS: BP 117/71; PULSE 62; RESP 17; TEMP 98; O2SAT 99
[2023-09-11] MEDS: NICOTINE 14 MG/24 HOUR PATCH TD SCH (08:49)
[2023-09-11] MEDS: TOPIRAMATE 25 MG TABLET PO SCH ×2 (08:49→16:39)
[2023-09-11] MEDS: MULTIVITAMINS WITH MINERALS, THERAPEUTIC TABLET PO SCH (08:49)
[2023-09-11] MEDS: GABAPENTIN 100 MG CAPSULE PO SCH ×2 (08:49→16:39)
[2023-09-11] MEDS: ZINC OXIDE 40%/COD LIVER OIL 57 GM PASTE TP SCH ×3 (09:37→17:17)
[2023-09-11 20:14] VITALS: BP 119/77; PULSE 69; RESP 18; TEMP 97.7
[2023-09-12] MEDS: HALOPERIDOL 5 MG TABLET PO PRN (06:55)
[2023-09-12 08:09] VITALS: BP 103/65; PULSE 56; RESP 16; TEMP 98.1; O2SAT 99
[2023-09-12] MEDS: TOPIRAMATE 25 MG TABLET PO SCH ×2 (08:19→17:05)
[2023-09-12] MEDS: GABAPENTIN 100 MG CAPSULE PO SCH ×2 (08:19→17:05)
[2023-09-12] MEDS: MULTIVITAMINS WITH MINERALS, THERAPEUTIC TABLET PO SCH (08:19)
[2023-09-12] MEDS: NICOTINE 14 MG/24 HOUR PATCH TD SCH (08:20)
[2023-09-12] MEDS: ZINC OXIDE 40%/COD LIVER OIL 57 GM PASTE TP SCH ×3 (08:21→16:58)
[2023-09-12] MEDS: MICONAZOLE NITRATE 200 MG VAGINAL SUPP [3] VG SCH (12:37)
[2023-09-12 21:22] VITALS: BP 100/68; PULSE 60; RESP 18; TEMP 97; O2SAT 96
[2023-09-13] MEDS: MULTIVITAMINS WITH MINERALS, THERAPEUTIC TABLET PO SCH (08:13)
[2023-09-13] MEDS: TOPIRAMATE 25 MG TABLET PO SCH ×2 (08:13→15:57)
[2023-09-13] MEDS: GABAPENTIN 100 MG CAPSULE PO SCH ×2 (08:13→15:57)
[2023-09-13] MEDS: NICOTINE 14 MG/24 HOUR PATCH TD SCH (08:15)
[2023-09-13] MEDS: ZINC OXIDE 40%/COD LIVER OIL 57 GM PASTE TP SCH ×3 (08:15→16:02)
[2023-09-13 08:52] VITALS: BP 111/70; PULSE 66; RESP 17; TEMP 97.6; O2SAT 98
[2023-09-13] MEDS: MICONAZOLE NITRATE 200 MG VAGINAL SUPP [3] VG SCH (09:00)
[2023-09-13] MEDS ORDERED: LITH300C3 PO (16:54)
[2023-09-13] MEDS ORDERED: ARIP15TA2 PO (16:55)
[2023-09-13] MEDS ORDERED: GABA-1216 PO (16:56)
[2023-09-13] MEDS ORDERED: TOPI25 PO (16:56)
[2023-09-13] MEDS ORDERED: MICO15CR9 VG (16:57)
[2023-09-13] MEDS ORDERED: NICO-703 TD (16:57)
[2023-09-13] MEDS ORDERED: LITHIUM CARBONATE 300 MG CAPSULE PO SCH ×2 (17:00)
[2023-09-14] MEDS ORDERED: ARIPiprazole 15 MG TABLET PO SCH (09:00)
== END 2023-09-13 18:00 | disposition home or self-care (01) | DRG 885 ==
LOC: EMS 17:33 → B2S 21:36
PROVIDERS: ADMIT Psychiatry & Neurology Psychiatry; ATTEND Psychiatry & Neurology Psychiatry
DX: F25.1 Schizoaffective disorder, depressive type (principal); R45.851 Suicidal ideations; E66.9 Obesity, unspecified; E78.5 Hyperlipidemia, unspecified; F41.9 Anxiety disorder, unspecified; G47.00 Insomnia, unspecified; Z20.822 Contact with and (suspected) exposure to COVID-19; I10 Essential (primary) hypertension; F12.90 Cannabis use, unspecified, uncomplicated; K59.00 Constipation, unspecified; F84.0 Autistic disorder; Z91.040 Latex allergy status; Z88.0 Allergy status to penicillin; Z91.018 Allergy to other foods; Z90.49 Acquired absence of other specified parts of digestive tract; Z72.89 Other problems related to lifestyle; Z68.35 Body mass index [BMI] 35.0-35.9, adult
CPT/HCPCS: 80053; 80061; 80307; 82962; 83036; 84439; 84443; 85025; 99285; G0480; J1200; J1630; J2060